=== PATIENT | male | born 1985 | race Caucasian/White ===

== ENCOUNTER → 2016-11-25 | Day surgery (SDC) | payer MEDICAID ==
[~2016-11-25] MED LIST: LIDOCAINE 1% INJ-PF (10 MG/ML) 30 ML SDV ONE
== END ==
LOC: RAD 12:40
PROVIDERS: ATTEND Radiology Radiation Oncology
PROC: BP08ZZZ Plain Radiography of Right Shoulder (ICD-10-PCS; principal; 2016-11-25)
DX: S43.431D Superior glenoid labrum lesion of right shoulder, subsequent encounter (principal); X58.XXXD Exposure to other specified factors, subsequent encounter
CPT/HCPCS: 73222; 73040; 77002; A9576; J3490

== ENCOUNTER 2017-02-22 15:25 | Emergency (ER) | payer MEDICAID ==
[2017-02-22 15:30] VITALS: BP 131/71
--- NOTE | 2017-02-22 15:53 | ER Document Report ---
HPI - HPI Patient complains to provider of: low back pain- chronic intermittent Onset: Other - 4-5 days, worse this am Onset/Duration: Gradual, Intermittent, Waxing and waning Pain Level: 4 Context: 31 yo male chronic intermittent low back pain for several years, has increased pain last 4-5 days, worse when lifting a sofa this morning. no saddle anesthesia , no fever or chills, no iv drug use. pain radiates into buttocks. Associated Symptoms: None Exacerbated by: Movement Relieved by: Denies Similar symptoms previously: Yes Recently seen / treated by doctor: No - ROS ROS below otherwise negative: Yes Systems Reviewed and Negative: Yes All other systems reviewed and negative - REPRODUCTIVE Reproductive: DENIES: : - DERM Skin Color: Normal Past Medical History - General Information source: Patient - Social History Smoking Status: Unknown if Ever Smoked Frequency of alcohol use: None Drug Abuse: None Lives with: Family Family History: Reviewed & Not Pertinent Patient has suicidal ideation: No Patient has homicidal ideation: No - Medical History Medical History: Negative Renal/ Medical History: Denies: Hx Peritoneal Dialysis Musculoskeltal Medical History: Reports Hx Musculoskeletal Trauma Past Surgical History: Reports: Hx Orthopedic Surgery - right shoulder, surgery for torn labrum him 2 years ago - Immunizations Immunizations up to date: Yes Hx Diphtheria, Pertussis, Tetanus Vaccination: No Vertical Provider Document - CONSTITUTIONAL Agree With Documented VS: Yes Exam Limitations: No Limitations General Appearance: No Apparent Distress - INFECTION CONTROL TRAVEL OUTSIDE OF THE [place] IN LAST 30 DAYS: No - HEENT HEENT: Atraumatic, Normocephalic - NECK Neck: Supple - RESPIRATORY Respiratory: Breath Sounds Normal, No Respiratory Distress O2 Sat by Pulse Oximetry: 99 - CARDIOVASCULAR Cardiovascular: Regular Rate, Regular Rhythm - BACK Back: Normal Inspection. negative: CVA Tenderness-Right, CVA Tenderness-Left Notes: left sacroiliac joint area tender, no swelling - MUSCULOSKELETAL/EXTREMETIES Musculoskeletal/Extremeties: MAEW, FROM, Tender - left sacroiliac and lumbar muscles on the left - NEURO Level of Consciousness: Awake, Alert, Appropriate Motor/Sensory: No Motor Deficit, No Sensory Deficit Deep Tendon Reflexes: 2+ - octavia ankle and patellar - DERM Integumentary: Warm, Dry Course - Vital Signs Vital signs: Temp Pulse Resp BP Pulse Ox 98.2 F 82 18 131/71 H 99 02/22/17 15:29 02/22/17 15:29 02/22/17 15:29 02/22/17 15:29 02/22/17 15:29 Discharge - Discharge Clinical Impression: Sacroiliitis Low back strain Qualifiers: Encounter type: initial encounter Qualified Code(s): S39.012A - Strain of muscle, fascia and tendon of lower back, initial encounter Sciatica Qualifiers: Laterality: right Qualified Code(s): M54.31 - Sciatica, right side Condition: Good Disposition: HOME, SELF-CARE Instructions: Low Back Pain ([facility]), Muscle Strain ([facility]), Toradol Injection ([facility]) , Warm Packs ([facility]), Acetaminophen, Chiropractor Additional Instructions: warm compress Use good body mechanics Return to the emergency room if worse Please complete the patient satisfaction survey if you get one, and return it.. If you do not receive a survey, then you can go to the [facility] website, [email or web address] and place your comments about your very good care. Thank you very much. It was a pleasure being your medical provider today. Prescriptions: Ibuprofen [Motrin 800 mg Tablet] 800 mg PO Q8HP PRN #30 tablet PRN Reason: Cyclobenzaprine HCl [Flexeril 10 Mg Tablet] 10 mg PO TIDP PRN #20 tablet PRN Reason: Forms: Return to Work Referrals: JONNY JOE MD [ACTIVE STAFF] - Follow up as needed
[2017-02-22] MEDS ORDERED: KETOROLAC TROMETHAMINE 60 MG/2 ML SDV IM ONE (16:01)
== END 2017-02-22 16:20 | disposition home or self-care (01) ==
LOC: ER 15:25
DX: S39.012A Strain of muscle, fascia and tendon of lower back, initial encounter (principal); M46.1 Sacroiliitis, not elsewhere classified; M54.5 Low back pain; G89.29 Other chronic pain; X58.XXXA Exposure to other specified factors, initial encounter
CPT/HCPCS: 99283; 96372; J1885

== ENCOUNTER 2017-04-15 21:39 | Emergency (ER) | payer MEDICAID ==
--- NOTE | 2017-04-15 23:54 | ER Document Report ---
ED Oral Problem - General Mode of Arrival: Ambulatory Information source: Patient TRAVEL OUTSIDE OF THE [place] IN LAST 30 DAYS: No - HPI Patient complains to provider of: Toothache Onset: Other - Refer to HPI notes Quality of pain: Throbbing Associated symptoms: Dental decay Worsened by: Cold Similar symptoms previously: Yes Recently seen / treated by doctor/dentist: No - General Chief Complaint: Toothache Stated Complaint: TOOTH PAIN Time Seen by Provider: 04/15/17 23:48 Notes: Patient is a 32 year old male presenting to the emergency department for dental pain. Patient states he has current dental cavities and has not seen a dentist recently. Patient has complains of dental pain for the past 2 weeks which increased today. Patient also has cold/hot sensitivity to PO. Patient denies fevers or any injury to his teeth. Patient states he has taken Motrin without relief. Patient has a history of chronic back pain and is with pain management; patient takes Ultram x4 per day. Patient has no known drug allergies. (YASMIN TSATON) - Related Data Allergies/Adverse Reactions: No Known Allergies Allergy (Verified 02/22/17 15:27) Past Medical History - General Information source: Patient - Social History Smoking Status: Unknown if Ever Smoked Family History: None Patient has suicidal ideation: No Patient has homicidal ideation: No Musculoskeltal Medical History: Reports Hx Musculoskeletal Trauma, Reports Other - chronic back pain Past Surgical History: Reports: Hx Orthopedic Surgery - right shoulder, surgery for torn labrum - Immunizations Immunizations up to date: Yes Hx Diphtheria, Pertussis, Tetanus Vaccination: No Review of Systems - Review of Systems Constitutional: No symptoms reported EENT: See HPI, Dental problem Cardiovascular: No symptoms reported Respiratory: No symptoms reported Gastrointestinal: No symptoms reported Genitourinary: No symptoms reported Male Genitourinary: No symptoms reported Musculoskeletal: No symptoms reported Skin: No symptoms reported Hematologic/Lymphatic: No symptoms reported Neurological/Psychological: No symptoms reported -: Yes All other systems reviewed and negative Physical Exam - Vital signs Interpretation: Normal - General General appearance: Appears well, Alert In distress: Mild - HEENT Head: Normocephalic, Atraumatic Eyes: Normal Pupils: PERRL Mouth/Lips: Normal Mucous membranes: Moist Teeth diagram: 1 - Left lower 2nd molar has a filling with some erythema and some mild tenderness to percussion. Left lower 1st molar, to the lateral aspect at the gumline is some tooth erosion and tenderness to percussion. Pharynx: Normal Neck: Normal. No: Lymphadenopathy - Respiratory Respiratory status: No respiratory distress - Cardiovascular Rhythm: Regular - Abdominal Inspection: Normal - Back Back: Normal - Extremities General upper extremity: Normal inspection, Normal ROM, Normal strength General lower extremity: Normal inspection, Normal ROM, Normal strength - Neurological Neuro grossly intact: Yes Cognition: Normal Orientation: AAOx4 Aric Coma Scale Eye Opening: Spontaneous Aric Coma Scale Verbal: Oriented [place] Coma Scale Motor: Obeys Commands Aric Coma Scale Total: 15 Speech: Normal - Psychological Associated symptoms: Normal affect, Normal mood - Skin Skin Temperature: Warm Skin Moisture: Dry - Vital signs Vitals: Temp Pulse Resp BP Pulse Ox 97.7 F 66 16 141/89 H 99 04/15/17 22:19 04/15/17 22:19 04/15/17 22:19 04/15/17 22:19 04/15/17 22:19 Discharge - Discharge Clinical Impression: Dental decay Additional Instructions: Toothache Your pain is due to dental decay. The tooth must be repaired in order for you to feel better. You will, therefore, be referred to a dentist. Severe swelling or drainage around a tooth usually means a deep dental abscess. This also requires evaluation and treatment by the dentist, but antibiotics may be prescribed while awaiting dental treatment. You should be rechecked immediately if you develop major swelling of the face, increasing pain, a lump in the jaw or gums, headache, or fever. TAKE THE MEDICATION PRESCRIBED. CONTINUE YOUR REGULAR PAIN MEDICATIONS. ADD MOTRIN OR ALEVE FOR A FEW DAYS. FOLLOW UP WITH A DENTIST. Prescriptions: Penicillin V Potassium [Penicillin Vk 500 mg Tablet] 500 mg PO QID #28 tablet Scribe Attestation: 04/16/17 00:01 I personally performed the services described in the documentation, reviewed and edited the documentation which was dictated to the scribe in my presence, and it accurately records my words and actions. (FRANCOISE BERKOWITZ) Scribe Documentation - Scribe Written by Rigoberto:: Rigoberto Bernabe, 04/16/17 00:15 acting as scribe for :: Tia
[2017-04-16] MEDS ORDERED: NAPROXEN 250 MG TABLET PO ONE (00:01)
[2017-04-16] MEDS ORDERED: PENICILLIN V POTASSIUM 500 MG TABLET PO ONE (00:01)
[2017-04-16 01:47] VITALS: BP 128/94
== END 2017-04-16 00:40 | disposition home or self-care (01) ==
LOC: ER 21:39
DX: K02.9 Dental caries, unspecified (principal); K08.89 Other specified disorders of teeth and supporting structures
CPT/HCPCS: 99282; J3490 ×2

== ENCOUNTER 2017-07-07 13:32 | Emergency (ER) | payer MEDICAID ==
[2017-07-07] MEDS ORDERED: FENTANYL CITRATE INJ/PF 100 MCG/2 ML AMPUL IV ONE (13:47)
[2017-07-07] MEDS ORDERED: DIPH/PERTUSS(ACELL)/TETANUS VAC/PF 0.5 ML SYR (>=10YO) IM ONE (13:47)
[2017-07-07] MEDS ORDERED: CEFAZOLIN 1 GM/D5W RTU 1 GM/50 ML RTUPB IV ONE (13:47)
--- NOTE | 2017-07-07 13:49 | ER Document Report ---
ED Medical Screen (RME) - General Chief Complaint: Fall Stated Complaint: FALL,HEAD AND FINGER INJURY Time Seen by Provider: 07/07/17 13:46 Mode of Arrival: Wheelchair Information source: Patient Notes: 32-year-old male fell off a 6 foot ladder with complaints of head injury right hand injury and right-sided pain I have greeted and performed a rapid initial assessment of this patient. A comprehensive ED assessment and evaluation of the patient, analysis of test results and completion of the medical decision making process will be conducted by additional ED providers. PHYSICAL EXAMINATION: GENERAL: Well-appearing, well-nourished and in no acute distress. HEAD: Laceration to scalp on the right occipital EYES: Pupils equal round extraocular movements intact, conjunctiva are normal. ENT: Nares patent NECK: Normal range of motion LUNGS: No respiratory distress Musculoskeletal: Deformity right hand NEUROLOGICAL: Normal speech, normal gait. PSYCH: Normal mood, normal affect. SKIN: Laceration TRAVEL OUTSIDE OF THE [place] IN LAST 30 DAYS: No - Related Data Allergies/Adverse Reactions: No Known Allergies Allergy (Verified 07/07/17 13:38) Past Medical History Renal/ Medical History: Denies: Hx Peritoneal Dialysis Musculoskeltal Medical History: Reports Hx Musculoskeletal Trauma Past Surgical History: Reports: Hx Orthopedic Surgery - right shoulder, surgery for torn labrum - Immunizations Immunizations up to date: Yes Hx Diphtheria, Pertussis, Tetanus Vaccination: No Physical Exam - Vital signs Vitals: Temp Pulse Resp BP Pulse Ox 97.7 F 87 16 139/95 H 97 07/07/17 13:35 07/07/17 13:35 07/07/17 13:35 07/07/17 13:35 07/07/17 13:35 Course - Vital Signs Vital signs: Temp Pulse Resp BP Pulse Ox 97.7 F 87 16 139/95 H 97 07/07/17 13:35 07/07/17 13:35 07/07/17 13:35 07/07/17 13:35 07/07/17 13:35
[2017-07-07 14:07] LABS: ABSOLUTE BASOPHILS # (AUTO) 0.1 10^3/uL (0.0-0.2); ABSOLUTE EOSINOPHILS # (AUTO) 0.4 10^3/uL (0.0-0.6); ABSOLUTE LYMPHOCYTES (AUTO) 1.7 10^3/uL (0.5-4.7); ABSOLUTE MONOCYTES (AUTO) 0.4 10^3/uL (0.1-1.4); ABSOLUTE NEUT (AUTO) 3.8 10^3/uL (1.7-8.2); BASOPHILS % (AUTO) 1.1 % (0-2); EOSINOPHILS % (AUTO) 6.1 % (0-6); HEMATOCRIT 42.9 % (37.9-51.0); HEMOGLOBIN 15.2 g/dL (13.5-17.0); HGB HCT DIFFERENCE 2.7; MEAN CORPUSCULAR HEMOGLOBIN 32.6 pg (27.0-33.4); MEAN CORPUSCULAR HGB CONC 35.4 g/dL (32.0-36.0); MEAN CORPUSCULAR VOLUME 92 fl (80-97); RED BLOOD COUNT 4.65 10^6/uL (4.35-5.55); RED CELL DISTRIBUTION WIDTH 14.7 % (11.5-14.0); SEGMENTED NEUTROPHILS % (AUTO) 59.8 % (42-78); WHITE BLOOD COUNT 6.3 10^3/uL (4.0-10.5)
--- NOTE | 2017-07-07 14:37 | ER Document Report ---
ED Fall - General Chief Complaint: Fall Stated Complaint: FALL,HEAD AND FINGER INJURY Time Seen by Provider: 07/07/17 13:46 Mode of Arrival: Wheelchair Information source: Patient Notes: The patient is a 32-year-old male who presents after he fell off a 6 foot ladder and he thinks that he had LOC. He is complaining of a headache, left middle finger pain and right chest and flank pain. He is unsure of his tetanus status. He denies numbness, tingling, difficulty walking, back pain, chest pain or blurry vision. TRAVEL OUTSIDE OF THE [place] IN LAST 30 DAYS: No - Related data Allergies/Adverse Reactions: No Known Allergies Allergy (Verified 07/07/17 13:38) Past Medical History - General Information source: Patient - Social History Smoking Status: Current Every Day Smoker Family History: None Renal/ Medical History: Denies: Hx Peritoneal Dialysis Musculoskeltal Medical History: Reports Hx Musculoskeletal Trauma Past Surgical History: Reports: Hx Orthopedic Surgery - right shoulder, surgery for torn labrum - Immunizations Immunizations up to date: Yes Hx Diphtheria, Pertussis, Tetanus Vaccination: No Review of Systems - Review of Systems Notes: REVIEW OF SYSTEMS: CONSTITUTIONAL: -fevers, -chills EENT: -eye pain, -difficulty swallowing, -nasal congestion CARDIOVASCULAR: +right chest pain, -syncope. RESPIRATORY: -cough, -SOB GASTROINTESTINAL: +right-sided abdominal pain, -nausea, -vomiting, -diarrhea GENITOURINARY: -dysuria, -hematuria MUSCULOSKELETAL: -back pain, +neck pain, +left middle finger pain SKIN: -rash or skin lesions. HEMATOLOGIC: -easy bruising or bleeding. LYMPHATIC: -swollen, enlarged glands. NEUROLOGICAL: -altered mental status, +loss of consciousness, +headache, - neurologic symptoms PSYCHIATRIC: -anxiety, -depression. ALL OTHER SYSTEMS REVIEWED AND NEGATIVE. Physical Exam - Vital signs Vitals: Temp Pulse Resp BP Pulse Ox 97.7 F 87 16 139/95 H 97 07/07/17 13:35 07/07/17 13:35 07/07/17 13:35 07/07/17 13:35 07/07/17 13:35 - Notes Notes: PHYSICAL EXAMINATION: GENERAL: Well-appearing, well-nourished and in no acute distress. HEAD: 1 cm laceration over posterior scalp, normocephalic. EYES: Pupils equal round and reactive to light, extraocular movements intact, sclera anicteric, conjunctiva are normal. ENT: nares patent, oropharynx clear without exudates. Moist mucous membranes. NECK: Normal range of motion, supple without lymphadenopathy, no midline tenderness LUNGS: Breath sounds clear to auscultation bilaterally and equal. No wheezes rales or rhonchi. HEART: Regular rate and rhythm without murmurs, tenderness over right lateral chest wall ABDOMEN: Soft, mild right flank tenderness, normoactive bowel sounds. No guarding, no rebound. No masses appreciated. EXTREMITIES: posterior dislocation of left 3rd PIP joint, brisk capillary refill , sensory intact, superficial abrasions of right hand NEUROLOGICAL: Cranial nerves grossly intact. Normal speech, normal gait. Normal sensory and motor exams. PSYCH: Normal mood, normal affect. Course - Re-evaluation Re-evalutation: Patient's left third finger dislocation reduced and splinted. His scalp laceration repaired with a staple and told to return in 1 week to have it removed or see his primary care physician. No other injuries on CT scan. Tetanus updated and we will send home with Keflex due to open wounds. Given return precautions and he understands. - Vital Signs Vital signs: Temp Pulse Resp BP Pulse Ox 97.7 F 77 16 139/95 H 99 07/07/17 13:36 07/07/17 13:36 07/07/17 13:35 07/07/17 13:36 07/07/17 13:36 - Laboratory Result Diagrams: 07/07/17 13:55 07/07/17 13:55 Laboratory results interpreted by me: 07/07/17 07/07/17 13:55 13:55 RDW 14.7 H Eosinophils % 6.1 H Sodium 135.3 L Chloride 96 L Alkaline Phosphatase 133 H - Diagnostic Test Radiology reviewed: Image reviewed, Reports reviewed Radiology results interpreted by me: Left hand x-ray: posterior dislocation of 3rd PIP joint CT Head/C-spine/Chest/A/P: NAD Procedures - Joint Reduction/Fracture Care Left 3rd digit Time completed: 15:04 Consent obtained: Yes Conscious sedation: No Pre-procedure NV exam: Yes Fracture: Closed Manipulation comment: Left 3rd finger posterior dislocation reduced using traction countertractio Post-procedure NV exam: Yes Post-reduction x-ray: Joint reduced Reduction attempts: 1 Complications: No - Laceration/Wound Repair Posterior Head Time completed: 15:05 Wound length (cm): 1 Wound's Depth, Shape: Linear Laceration pre-procedure: Sterile PPE donned Anesthetic type: 1% Lidocaine Volume Anesthetic (mLs): 2 Wound explored: Clean Irrigated w/ Saline (mLs): 500 Wound Repaired With: Darian Number of Sutures: 1 Layer Closure?: No Post-procedure NV exam normal: Yes Complications: No Discharge - Discharge Clinical Impression: Abrasion Dislocation, finger closed Qualifiers: Encounter type: initial encounter Qualified Code(s): S63.259A - Unspecified dislocation of unspecified finger, initial encounter Scalp laceration Qualifiers: Encounter type: initial encounter Qualified Code(s): S01.01XA - Laceration without foreign body of scalp, initial encounter Condition: Stable Disposition: HOME, SELF-CARE Additional Instructions: LACERATION CARE: Your laceration has been stapled to keep the skin edges aligned during healing. The time of suture removal depends on the nature and location of your cut. Please follow the care instructions the doctor has outlined for you and return for further care, according to the schedule you've been given. Keep the wound and dressing clean. Unless you were told otherwise, you may shower daily, blotting the wound dry with a clean, unused towel. At other times, If the dressing gets wet or blood soaked, remove it and blot the wound dry, then reapply a new dressing. Unless you were instructed otherwise, dressings should be changed at least daily. If any signs of infection occur (swelling, redness, drainage, increasing tenderness, red streaks, tender lumps in the armpit or groin above the laceration, or fever), see the doctor immediately. SOAP CLEANSING: Gently wash the wound daily using a mild soap (like Ivory, Phisoderm, Neutrogena). Use warm water, rubbing gently until all debris, ooze, and crusting have been washed from the wound. Allow to dry briefly (about 10 minutes) after cleaning. Repeat this cleansing at least three times a day for the first two days and then once or twice a day. ANTIBIOTIC OINTMENT PROTECTION: Your wounds are such that dressing them is not practical or optional. After cleansing, you should apply a thin coating of antibiotic ointment ( Bacitracin, not Neosporin) to the wounds at least three times daily. This lessens infection risk, and may decrease the amount of scarring. Use a q-tip or dull butter knife, not your finger, to apply this ointment. Any debris or ooze which builds up in the ointment should be gently rubbed off with a sterile gauze pad. Harder crusting may need to be gently scrubbed off with a clean wash cloth with soap and warm water, perhaps applying a warm, wet wash cloth to the wound for ten minutes first. Development of redness, severe itching, or blistering may mean allergy to the ointment. See the doctor. TETANUS IMMUNIZATION GIVEN: You have been given an immunization against tetanus. Please record this in your records. In general, a booster is needed only once every 10 years. The tetanus shot protects against tetanus or "lockjaw," which is a complication of certain wound infections (the tetanus shot cannot protect against the actual infection). The immunization site may become warm and red due to local reaction. If this occurs, apply warm compresses and take aspirin or ibuprofen to reduce inflammation and discomfort. Return for evaluation if the reaction becomes severe. PROPHYLACTIC ANTIBIOTIC: The antibiotics which have been prescribed are designed to decrease the risk of infection. Only certain types of wounds benefit from this -- the typical cut, scrape, or burn DOES NOT require antibiotics. Of course, infection can still occur despite the use of prophylactic antibiotics. Your wound will heal with less chance of an infectious complication if you take the medication as directed. The most important dose is the FIRST dose, so don't delay filling the prescription! ORAL NARCOTIC MEDICATION: You have been given a prescription for pain control. This medication is a narcotic. It's best taken with food, as nausea can result if taken on an empty stomach. Don't operate machinery or drive within six hours of taking this medication. Do not combine this medicine with alcohol, or with any medication which can cause sedation (such as cold tablets or sleeping pills) unless you get permission from the physician. Narcotics tend to cause constipation. If possible, drink plenty of fluids and eat a diet high in fiber and fruits. FOLLOW-UP CARE: Your darian should be removed in 7 days. To facilitate a timely removal of your sutures, you may return to the Emergency Department at [facility]. You do not need to call for an appointment, but the best time to come in for suture removal is early in the morning. If you have been referred to another physician for follow-up care, call that physicians office for an appointment as you were instructed. If you experience a significant change in your laceration, or if you are concerned there may be an infection (swelling, redness, drainage, increasing tenderness, red streaks, tender lumps in the armpit or groin above the laceration, or fever) , return to the Emergency Department immediately re-evaluation. Dislocation You have suffered a dislocation of your joint. It has been reduced (put back in place). It will take time for the tissues around the joint to heal. The joint will be immobilized at first. If possible, elevate the injured area and apply ice packs. After healing is underway, the joint will require [id number] and strengthening exercises. The follow-up care is important in avoiding residual problems following your dislocation. If you note any numbness, muscle weakness, or severe swelling in the affected area, call the doctor or return for re-evaluation at once. Prescriptions: Cephalexin Monohydrate [Keflex 500 mg Capsule] 500 mg PO Q12H 7 Days capsule Hydrocodone/Acetaminophen [Lodi 5-325 mg Tablet] 1 tab PO Q6H PRN #12 tablet PRN Reason: Referrals: SUNNY WYNN MD [Primary Care Provider] - Follow up as needed
[2017-07-07 14:39] LABS: ALANINE AMINOTRANSFERASE 43 U/L (21-72); ALBUMIN 4.9 g/dL (3.5-5.0); ALKALINE PHOSPHATASE 133 U/L (38-126); ANION GAP 11 (5-19); ASPARTATE AMINO TRANSFERASE 49 U/L (17-59); BILIRUBIN,DIRECT 0.3 mg/dL (0.0-0.4); BILIRUBIN,TOTAL 0.6 mg/dL (0.2-1.3); BLOOD UREA NITROGEN 7 mg/dL (7-20); CALCIUM 9.4 mg/dL (8.4-10.2); CARBON DIOXIDE 28 mmol/L (22-30); CHLORIDE 96 mmol/L (98-107); CREATININE RESULT 0.99 mg/dL (0.52-1.25); GLUCOSE 108 mg/dL (75-110); POTASSIUM 3.9 mmol/L (3.6-5.0); SODIUM 135.3 mmol/L (137-145); TOTAL PROTEIN 7.5 g/dL (6.3-8.2)
[2017-07-07] MEDS ORDERED: LIDOCAINE 1% INJ-PF (10 MG/ML) 30 ML SDV ONE (14:43)
--- NOTE | 2017-07-07 14:47 | RADIOLOGY REPORT (SQ) ---
EXAM DESCRIPTION: CT HEAD WITHOUT COMPLETED DATE/TIME: 07/07/2017 2:26 pm REASON FOR STUDY: fall COMPARISON: None. TECHNIQUE: Axial images acquired through the brain without intravenous contrast. Images reviewed wi th bone, brain and subdural windows. Images stored on PACS. All CT scanners at this facility use dose modulation, iterative reconstruction, and/or weight based d osing when appropriate to reduce radiation dose to as low as reasonably achievable (ALARA). [facility]: Dose Right [facility]: CareDose [facility]: Dose Right [facility]: Teradose 4D [facility]: Citilog RADIATION DOSE: Up-to-date CT equipment and radiation dose reduction techniques were employed. CTDIv ol: 64.6 mGy. DLP: 1292 mGy-cm. mGy. LIMITATIONS: None. FINDINGS: VENTRICLES: Normal size and contour. CEREBRUM: No masses. No hemorrhage. No midline shift. Normal archuleta/white matter differentiation. N o evidence for acute infarction. CEREBELLUM: No masses. No hemorrhage. No alteration of density. No evidence for acute infarction. EXTRAAXIAL SPACES: No fluid collections. No masses. ORBITS AND GLOBE: No intra- or extraconal masses. Normal contour of globe without masses. CALVARIUM: No fracture. PARANASAL SINUSES: Fluid in the maxillary and ethmoid sinuses. SOFT TISSUES: No mass or hematoma. OTHER: No other significant finding. IMPRESSION: NORMAL BRAIN CT WITHOUT CONTRAST. TECHNICAL DOCUMENTATION: JOB ID: [id number] Quality ID # [id number]: Final reports with documentation of one or more dose reduction techniques (e.g., Au tomated exposure control, adjustment of the mA and/or kV according to patient size, use of iterative reconstruction technique) 2010 [employer]- All Rights Reserved
--- NOTE | 2017-07-07 14:47 | RADIOLOGY REPORT (SQ) ---
EXAM DESCRIPTION: CT CERVICAL SPINE WITHOUT COMPLETED DATE/TIME: 07/07/2017 2:26 pm REASON FOR STUDY: fall COMPARISON: None. TECHNIQUE: Axial images acquired through the cervical spine without intravenous contrast. Images re viewed with lung, soft tissue and bone windows. Reconstructed coronal and sagittal MPR images review ed. Images stored on PACS. All CT scanners at this facility use dose modulation, iterative reconstruction, and/or weight based d osing when appropriate to reduce radiation dose to as low as reasonably achievable (ALARA). [facility]: Dose Right [facility]: CareDose [facility]: Dose Right [facility]: Teradose 4D [facility]: Smart [employer] RADIATION DOSE: Up-to-date CT equipment and radiation dose reduction techniques were employed. CTDIv ol: 15.1 mGy. DLP: 324 mGy-cm. mGy. LIMITATIONS: None. FINDINGS: ALIGNMENT: Anatomic. MINERALIZATION: Normal. VERTEBRAL BODIES: No fractures or dislocation. DISCS: Mild degenerative disc disease. FACETS, LATERAL MASSES, POSTERIOR ELEMENTS: No fractures. No dislocation. No acute findings. HARDWARE: None in the spine. VISUALIZED RIBS: No fractures. LUNG APICES AND SOFT TISSUES: No significant or acute findings. OTHER: No other significant finding. IMPRESSION: 1. No evidence of acute injury involving the cervical spine. 2. Mild degenerative disc disease. TECHNICAL DOCUMENTATION: JOB ID: [id number] Quality ID # [id number]: Final reports with documentation of one or more dose reduction techniques (e.g., Au tomated exposure control, adjustment of the mA and/or kV according to patient size, use of iterative reconstruction technique) 2010 [employer]- All Rights Reserved
--- NOTE | 2017-07-07 14:49 | RADIOLOGY REPORT (SQ) ---
EXAM DESCRIPTION: HAND RIGHT 3 VIEWS COMPLETED DATE/TIME: 07/07/2017 2:38 pm REASON FOR STUDY: fall COMPARISON: None. EXAM PARAMETERS: NUMBER OF VIEWS: Three views. TECHNIQUE: AP, lateral and oblique radiographic images acquired of the right hand. LIMITATIONS: None. FINDINGS: MINERALIZATION: Normal. BONES: Posterior dislocation 3rd proximal interphalangeal joint. JOINTS: See above. SOFT TISSUES: No soft tissue swelling. No foreign body. OTHER: No other significant finding. IMPRESSION: Posterior dislocation 3rd proximal interphalangeal joint. TECHNICAL DOCUMENTATION: JOB ID: [id number] [employer]- All Rights Reserved
--- NOTE | 2017-07-07 14:58 | RADIOLOGY REPORT (SQ) ---
EXAM DESCRIPTION: CT ABD/PELVIS WITH IV ONLY; CT CHEST WITH COMPLETED DATE/TIME: 07/07/2017 2:26 pm REASON FOR STUDY: fall COMPARISON: None. CONTRAST TYPE AND DOSE: contrast/concentration: Isovue 370.00 mg/ml; Total Contrast Delivered: 84.0 ml; Total Saline Delivered: 55.0 ml RENAL FUNCTION: None required. The patient is less than 50 years old. TECHNIQUE: CT scan of the chest performed using helical scanning technique with dynamic intravenous contrast injection. Images reviewed with lung, soft tissue and bone windows. Reconstructed coronal a nd sagittal MPR images reviewed. All images stored on PACS. CT scan of the abdomen and pelvis performed with intravenous and without oral contrastusing helical s ruddy technique with dynamic intravenous contrast injection. Images reviewed with lung, soft tissu e and bone windows. Reconstructed coronal and sagittal MPR images reviewed. Delayed images for eval uation of the urinary system also acquired and evaluated. All images stored on PACS. All CT scanners at this facility use dose modulation, iterative reconstruction, and/or weight based d osing when appropriate to reduce radiation dose to as low as reasonably achievable (ALARA). [facility]: Dose Right [facility]: CareDose [facility]: Dose Right [facility]: Teradose 4D [facility]: [employer] RADIATION DOSE: Up-to-date CT equipment and radiation dose reduction techniques were employed. CTDIv ol: 6.2 - 7.9 mGy. DLP: 859 mGy-cm. . LIMITATIONS: None. FINDINGS: CHEST: LUNGS AND PLEURA: No opacities, nodules, masses. No pneumothorax. No effusions. HILAR AND MEDIASTINAL STRUCTURES: No identified masses or abnormal nodes. Small amount residual thym us tissue. HEART AND VASCULAR STRUCTURES: No aneurysm or dissection. No central pulmonary emboli. No pericardi al effusion. HARDWARE: None. THYROID AND OTHER SOFT TISSUES: No masses. No adenopathy. BONES: No significant finding. OTHER: No other significant finding. ABDOMEN AND PELVIS: LIVER: Normal size. No masses. No dilated ducts. SPLEEN: Normal size. No focal lesions. PANCREAS: No masses. No significant calcifications. No adjacent inflammation or peripancreatic fluid collections. Pancreatic duct not dilated. GALLBLADDER: No identified stones by CT criteria. No inflammatory changes to suggest cholecystitis. ADRENAL GLANDS: No significant masses or asymmetry. RIGHT KIDNEY AND URETER: No solid masses. No significant calcification. No hydronephrosis or hydroure ter. LEFT KIDNEY AND URETER: No solid masses. No significant calcification. No hydronephrosis or hydrouret er. AORTA AND VESSELS: No aneurysm. No dissection. Renal arteries, SMA, celiac without stenosis. RETROPERITONEUM: No retroperitoneal adenopathy, hemorrhage or masses. BOWEL AND PERITONEAL CAVITY: No masses or inflammatory changes. No free fluid or peritoneal masses. APPENDIX: Normal. ABDOMINAL WALL: No masses. No hernias. BONES: No evidence of fracture. Moderate degenerative disc disease at L4-5 and L5-S1. OTHER: No other significant finding. IMPRESSION: 1. NORMAL CT OF THE CHEST WITH IV CONTRAST. 2. No evidence of acute injury in the abdomen or pelvis. Moderate degenerative disc disease at L4-5 and L5-S1. TECHNICAL DOCUMENTATION: JOB ID: [id number] Quality ID # [id number]: Final reports with documentation of one or more dose reduction techniques (e.g., Au tomated exposure control, adjustment of the mA and/or kV according to patient size, use of iterative reconstruction technique) 2010 [employer]- All Rights Reserved
[2017-07-07 15:09] LABS: APPEARANCE,URINE CLEAR; BILIRUBIN,URINE NEGATIVE (NEGATIVE); GLUCOSE, URINE NEGATIVE (NEGATIVE); KETONES,URINE NEGATIVE (NEGATIVE); LEUKOCYTE ESTERASE,URINE NEGATIVE (NEGATIVE); NITRITE,URINE NEGATIVE (NEGATIVE); PROTEIN,URINE NEGATIVE (NEGATIVE); URINE SPECIFIC GRAVITY 1.012; UROBILINOGEN,URINE NEGATIVE mg/dL (<2.0)
--- NOTE | 2017-07-07 15:28 | RADIOLOGY REPORT (SQ) ---
EXAM DESCRIPTION: FINGER RIGHT COMPLETED DATE/TIME: 07/07/2017 3:07 pm REASON FOR STUDY: post-reduction COMPARISON: None. NUMBER OF VIEWS: Three views. TECHNIQUE: AP, lateral, and oblique images acquired of the right third finger. LIMITATIONS: None. FINDINGS: MINERALIZATION: Normal. BONES: Interval reduction of previous noted dislocated 3rd PIP joint. Bones are now in anatomic alig nment. No associated fracture. SOFT TISSUES: Mild soft tissue swelling involving the 3rd finger. OTHER: No other significant finding. IMPRESSION: Interval reduction of previous noted dislocated 3rd PIP joint. No associated fracture. COMMENT: SITE OF TRAUMA/COMPLAINT MARKED/STAMP COMPLETED: NOT APPLICABLE. TECHNICAL DOCUMENTATION: JOB ID: [id number] [employer]- All Rights Reserved
[2017-07-07 16:07] VITALS: BP 135/90
== END 2017-07-07 16:06 | disposition home or self-care (01) ==
LOC: ER 13:32
PROC: 0RSVXZZ Reposition Left Metacarpophalangeal Joint, External Approach (ICD-10-PCS; principal; 2017-07-07)
PROC: 0HQ0XZZ Repair Scalp Skin, External Approach (ICD-10-PCS; 2017-07-07)
DX: S63.259A Unspecified dislocation of unspecified finger, initial encounter (principal); S01.01XA Laceration without foreign body of scalp, initial encounter; W11.XXXA Fall on and from ladder, initial encounter; F17.200 Nicotine dependence, unspecified, uncomplicated
CPT/HCPCS: 26700; 12001; 99284; 90471; 96374; 36415; 85025; 80053; 81001; 73140; 73130; 70450; 71260; 72125; 74177; 90715; L0120; J0690; J3010

== ENCOUNTER 2018-01-22 13:03 | Emergency (ER) | payer MEDICAID ==
--- NOTE | 2018-01-22 13:45 | ER Document Report ---
ED Medical Screen (RME) - General Chief Complaint: Breathing Difficulty Stated Complaint: UPPER BACK PAINS Time Seen by Provider: 01/22/18 13:37 Mode of Arrival: Ambulatory Information source: Patient Notes: This is a 32-year-old man that presents to the emergency room with acute right chest pain. Patient states he was raking and felt a pop in the back by his scapula on the right side which radiated to the front. Social: 1 pack per day smoker Allergies: None Medications: Synthroid, ibuprofen Surgeries: Right shoulder surgery TRAVEL OUTSIDE OF THE [place] IN LAST 30 DAYS: No - HPI Onset: Just prior to arrival Onset/Duration: Sudden Quality of pain: Sharp, Stabbing Severity: Moderate Pain Level: 3 Associated Symptoms: Chest pain. denies: Shortness of breath Exacerbated by: Movement, Other - Exacerbated by range of motion of the right shoulder Relieved by: Remaining still Similar symptoms previously: Yes Recently seen / treated by doctor: No - Related Data Smoking: Cigarettes Frequency of alcohol use: None Drug Abuse: None Allergies/Adverse Reactions: No Known Allergies Allergy (Verified 01/22/18 13:06) Past Medical History - General Information source: Patient - Social History Cigarette use (# per day): Yes - 1/2 pack a day Chew tobacco use (# tins/day): No Frequency of alcohol use: Occasional Drug Abuse: None Lives with: Spouse/Significant other Family history: None - Past Medical History Cardiac Medical History: Reports: None Pulmonary Medical History: Reports: None Neurological Medical History: Reports: None Endocrine Medical History: Reports: None Renal/ Medical History: Denies: Hx Peritoneal Dialysis Malignancy Medical History: Reports None GI Medical History: Reports: None Musculoskeltal Medical History: Reports Hx Musculoskeletal Trauma Past Surgical History: Reports: Hx Orthopedic Surgery - right shoulder, surgery for torn labrum - Immunizations Immunizations up to date: Yes Hx Diphtheria, Pertussis, Tetanus Vaccination: No Review of Systems - Review of Systems Constitutional: denies: Chills, Fever EENT: No symptoms reported Cardiovascular: See HPI. denies: Palpitations, Heart racing, Orthopnea, Dyspnea , Syncope Respiratory: See HPI Gastrointestinal: No symptoms reported Genitourinary: No symptoms reported Male Genitourinary: No symptoms reported Musculoskeletal: See HPI Skin: No symptoms reported Hematologic/Lymphatic: No symptoms reported Neurological/Psychological: No symptoms reported Physical Exam - Vital signs Vitals: Temp Pulse Resp BP Pulse Ox 99.0 F 84 16 131/87 H 100 01/22/18 13:14 01/22/18 13:14 01/22/18 13:14 01/22/18 13:14 01/22/18 13:14 Notes: Physical exam: GENERAL: 32-year-old man, alert and oriented 3, no acute distress HEAD: Atraumatic, normocephalic. EYES: Pupils equal round and reactive to light, extraocular movements intact, sclera anicteric, conjunctiva are normal. ENT: TMs normal, nares patent, oropharynx clear without exudates. Moist mucous membranes. NECK: Normal range of motion, supple without obvious mass or JVD. LUNGS: Breath sounds clear to auscultation bilaterally and equal. No wheezes rales or rhonchi. HEART: Regular rate and rhythm without murmurs, rubs or gallops. ABDOMEN: Soft, normoactive bowel sounds. No tenderness to palpation. No guarding, no rebound. No masses appreciated. Back: Patient has tender to palpation underneath the scapula of the back wall on the right. There is no crepitus or skin changes. EXTREMITIES: Normal range of motion, no pitting or edema. No clubbing or cyanosis. Patient has normal pulses to the right upper extremity with good capillary refill and no evidence of cyanosis. He has significant pain to the right chest wall and right back when he lifts his right arm and does range of motion about the shoulder. He does have full range of motion at the shoulder. NEUROLOGICAL: Cranial nerves II through XII grossly intact. Normal speech, moving all extremities. PSYCH: Normal mood, normal affect. SKIN: Warm, Dry, normal turgor, no rashes or lesions noted. Course - Re-evaluation Re-evalutation: 01/22/18 15:26 Note: Patient is both PERC negative and Well's negAtive: The suspicion for pulmonary embolism is quite low. His oxygen saturation is 100% on room air. His symptoms are not consistent with PE and appear more musculoskeletal in nature. Chest x-ray shows fully inflated lungs without evidence of pneumothorax. Patient does have tenderness over the scapula to palpation and his pains is significantly worsened with range of motion of the right shoulder. Joint itself shows no erythema, no crepitus, no swelling. 01/22/18 19:16 - Vital Signs Vital signs: Temp Pulse Resp BP Pulse Ox 98.0 F 69 19 118/74 100 01/22/18 15:34 01/22/18 15:34 01/22/18 15:34 01/22/18 15:34 01/22/18 15:34 - Diagnostic Test Radiology reviewed: Image reviewed, Reports reviewed - Chest x-ray shows no infiltrates or effusions - EKG Interpretation by Me Rate: Normal Rhythm: NSR - EKG shows normal sinus rhythm with a ventricular rate of 60, some early re-pole, no T-wave inversions, no ST depressions Doctor's Discharge - Discharge Clinical Impression: Musculoskeletal pain Condition: Stable Disposition: HOME, SELF-CARE Additional Instructions: Recommendations: As we discussed, your chest x-ray looks good right now. There is no evidence of lung collapse or infiltrate. However, if the pain gets worse or if he starts getting short of breath or you think you are getting worse, it is important that you come back to the ER for repeat evaluation of your lungs. Continue with the ibuprofen. Take the Robaxin for muscle relaxation. This generally is nonsedating and most people. I would take it at home before going to work. Take Percocet as needed for pain not relieved with the ibuprofen. Follow-up with your primary care doctor in the next day for repeat evaluation: Bring a copy of the x-ray results from today. The pain medicine you're taking prescribed as a narcotic. There are several important things you should know about this medicine: 1. This medicine contains Tylenol: It is important that you do not take Tylenol (or acetaminophen) while on this medicine. Tylenol is metabolized by the liver and taking too much Tylenol (acetaminophen) can lay to liver damage and even liver failure. 2. Taking narcotics for too long can lead to physical and mental dependence. Take this medicine only if really needed and in the lowest quantity to achieve pain relief. 3. Do not drink alcohol while on this medicine. Alcohol interacts with narcotics and the combination can be dangerous. 4. Do not drive or operate machinery while on this medicine. 5. Narcotics do cause constipation, so drink plenty of fluids and daily stool softeners. Prescriptions: Methocarbamol [Robaxin 500 mg Tablet] 500 mg PO BID #14 tablet Oxycodone HCl/Acetaminophen [Percocet 5-325 mg Tablet] 1 - 2 tab PO ASDIR PRN # 25 tablet PRN Reason: Referrals: SUNNY WILLIAMSON MD [Primary Care Provider] - Follow up as needed
[2018-01-22] MEDS ORDERED: IPRATROPIUM/ALBUTEROL 0.5-2.5 MG/3 ML AMPUL NEB ONE (13:51)
[2018-01-22] MEDS ORDERED: KETOROLAC TROMETHAMINE 60 MG/2 ML SDV IM ONE (13:51)
--- NOTE | 2018-01-22 13:59 | RADIOLOGY REPORT (SQ) ---
EXAM DESCRIPTION: CHEST PA/LAT COMPLETED DATE/TIME: 01/22/2018 1:50 pm REASON FOR STUDY: right chest pain COMPARISON: 11/11/2015 EXAM PARAMETERS: NUMBER OF VIEWS: two views TECHNIQUE: Digital Frontal and Lateral radiographic views of the chest acquired. RADIATION DOSE: NA LIMITATIONS: none FINDINGS: LUNGS AND PLEURA: No opacities, masses or pneumothorax. No pleural effusion. MEDIASTINUM AND HILAR STRUCTURES: No masses or contour abnormalities. HEART AND VASCULAR STRUCTURES: Heart normal size. No evidence for failure. BONES: No acute findings. HARDWARE: None in the chest. OTHER: No other significant finding. IMPRESSION: NO SIGNIFICANT RADIOGRAPHIC FINDING IN THE CHEST. TECHNICAL DOCUMENTATION: JOB ID: [id number] [employer]- All Rights Reserved Reading location - IP/workstation name: [email or web address]
[2018-01-22 15:35] VITALS: BP 118/74
--- NOTE | 2018-01-22 21:46 | EKG REPORT ---
SEVERITY:- NORMAL ECG - SINUS RHYTHM : Confirmed by: Martha Broderick 22-Jan-2018 21:46:11
== END 2018-01-22 15:43 | disposition home or self-care (01) ==
LOC: ER 13:03
DX: M79.1 Myalgia (principal); R07.9 Chest pain, unspecified; F17.210 Nicotine dependence, cigarettes, uncomplicated
CPT/HCPCS: 93005; 94640; 99285; 96372; 71046; 93010; J1885; J7620

== ENCOUNTER 2018-04-26 19:38 | Emergency (ER) | payer MEDICAID ==
[2018-04-26 19:52] VITALS: BP 141/89
[2018-04-26] MEDS ORDERED: ACETAMINOPHEN 325 MG TABLET PO ONE (20:24)
[2018-04-26] MEDS ORDERED: LIDOCAINE 1% INJ-PF (10 MG/ML) 30 ML SDV INJ ONE (20:24)
[2018-04-26] MEDS ORDERED: IBUPROFEN 800 MG TABLET PO ONE (20:24)
[2018-04-26] MEDS ORDERED: CEFTRIAXONE INJ 500 MG VIAL IM ONE (20:24)
--- NOTE | 2018-04-26 20:25 | ER Document Report ---
HPI - HPI Pain Level: 4 Context: Patient is a 33-year-old male who presents emergency department the chief complaint of left thumb puncture wound. Patient states that he accidentally punctured his fat pad of his left thumb with a nail. States his tetanus is up- to-date. He has some pain and swelling of that part of his finger. Did not take anything prior to arrival. Denies any known allergies. Otherwise healthy male - REPRODUCTIVE Reproductive: DENIES: : - MUSCULOSKELETAL Musculoskeletal: REPORTS: Extremity pain - L thumb Past Medical History - Social History Smoking Status: Unknown if Ever Smoked Family History: None Patient has suicidal ideation: No Patient has homicidal ideation: No Renal/ Medical History: Denies: Hx Peritoneal Dialysis Musculoskeltal Medical History: Reports Hx Musculoskeletal Trauma Past Surgical History: Reports: Hx Orthopedic Surgery - right shoulder, surgery for torn labrum - Immunizations Immunizations up to date: Yes Hx Diphtheria, Pertussis, Tetanus Vaccination: No Vertical Provider Document - CONSTITUTIONAL Agree With Documented VS: Yes Notes: PHYSICAL EXAM GENERAL: Alert, interacts well. HEAD: Normocephalic, atraumatic. EXTREMITIES: Some limitation due to swelling of the left thumb but otherwise no evidence of paronychia, felon with a small puncture wound noted without active bleeding. Patient tenderness to palpation of the fat pad. Capillary refill less than 2 seconds in bilateral extremity digits. No cyanosis. NEUROLOGICAL: Alert and oriented x4. Normal speech. PSYCH: Normal affect, normal mood. SKIN: Warm, dry, normal turgor. - INFECTION CONTROL TRAVEL OUTSIDE OF THE [place] IN LAST 30 DAYS: No Course - Re-evaluation Re-evalutation: 04/26/18 21:18 Patient is a 33-year-old male who presents with a puncture and with an up-to- date tetanus. Patient given a dose of antibiotics and discharged home on Keflex as strict return precautions. At this time do not see any evidence of underlying foreign body or fracture noted on x-ray. At this time patient is not showing signs or symptoms concerning for osteomyelitis or septic joint. Patient agreeable with return precautions stable for discharge home - Vital Signs Vital signs: Temp Pulse Resp BP Pulse Ox 98.0 F 73 16 141/89 H 97 04/26/18 19:50 04/26/18 19:50 04/26/18 19:50 04/26/18 19:50 04/26/18 19:50 - Diagnostic Test Radiology reviewed: Image reviewed, Reports reviewed Discharge - Discharge Clinical Impression: Puncture wound Condition: Good Disposition: HOME, SELF-CARE Instructions: Puncture Wound ([facility]) Prescriptions: Cephalexin Monohydrate [Keflex 500 mg Capsule] 500 mg PO Q6H 5 Days capsule Forms: Elevated Blood Pressure Referrals: SUNNY WILLIAMSON MD [Primary Care Provider] - Follow up in 1 week
--- NOTE | 2018-04-26 20:39 | RADIOLOGY REPORT (SQ) ---
EXAM DESCRIPTION: FINGER LEFT COMPLETED DATE/TIME: 04/26/2018 8:08 pm REASON FOR STUDY: Thumb pain after injury COMPARISON: None. NUMBER OF VIEWS: Three views. TECHNIQUE: AP, lateral, and oblique images acquired of the left thumb. LIMITATIONS: None. FINDINGS: MINERALIZATION: Normal. BONES: No acute fracture or dislocation. No worrisome bone lesions. SOFT TISSUES: No soft tissue swelling. No foreign body. OTHER: No other significant finding. IMPRESSION: NO RADIOGRAPHIC EVIDENCE OF ACUTE INJURY. COMMENT: SITE OF TRAUMA/COMPLAINT MARKED/STAMP COMPLETED: Yes TECHNICAL DOCUMENTATION: JOB ID: [id number] [employer]- All Rights Reserved Reading location - IP/workstation name: [email or web address]
== END 2018-04-26 21:35 | disposition home or self-care (01) ==
LOC: ER 19:38
DX: S61.032A Puncture wound without foreign body of left thumb without damage to nail, initial encounter (principal); W29.4XXA Contact with nail gun, initial encounter
CPT/HCPCS: 99283; 96372; 73140; J3490 ×3; J0696

== ENCOUNTER 2018-05-16 18:17 | Emergency (ER) | payer MEDICAID ==
[2018-05-16] MEDS ORDERED: CIPROFLOXACIN HCL/DEXAMETH OTIC DROP 7.5 ML AS ONE (20:27)
[2018-05-16] MEDS ORDERED: GUAIFENESIN 600 MG TABLET.SA PO ONE (20:27)
[2018-05-16] MEDS ORDERED: PSEUDOEPHEDRINE HCL 30 MG TABLET PO ONE (20:27)
--- NOTE | 2018-05-16 20:33 | ER Document Report ---
ED ENT - General Chief Complaint: Ear Pain Stated Complaint: EAR PAIN Time Seen by Provider: 05/16/18 19:58 Mode of Arrival: Ambulatory Information source: Patient Notes: 33-year-old male presented ED for complaint of left ear pain since . He states he has had some blood in the ear since yesterday. He states he has had a cough and cold symptoms for a couple weeks. Patient is alert and oriented respirations regular and unlabored speaking in even sentences with a even steady gait. Patient states his was cleaning his ear out with some peroxide this weekend. He states no one has put any objects into his ear to injure his ear. TRAVEL OUTSIDE OF THE [place] IN LAST 30 DAYS: No - HPI Patient complains to provider of: Ear problem, Nose problem Onset: Last week Onset/Duration: Gradual Quality of pain: Sharp, Other - Ryan Severity: Moderate Pain Level: 4 Context: Recent Illness Location of pain: Ears Associated symptoms: Ear pain, Runny nose, Sinus pain, Sinus drainage Similar symptoms previously: Yes Recently seen / treated by doctor: No - Related Data Allergies/Adverse Reactions: No Known Allergies Allergy (Verified 05/16/18 19:36) Past Medical History - General Information source: Patient - Social History Smoking Status: Current Every Day Smoker Cigarette use (# per day): Yes - Pack per day Chew tobacco use (# tins/day): No Smoking Education Provided: Yes - 4 minutes Frequency of alcohol use: Occasional Drug Abuse: None 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 Lives with: Family Family History: None Patient has suicidal ideation: No Patient has homicidal ideation: No - Past Medical History Cardiac Medical History: Reports: Other - Heart palpitations Pulmonary Medical History: Reports: None EENT Medical History: Reports: None Neurological Medical History: Reports: None Endocrine Medical History: Reports: None, Hx Hypothyroidism Renal/ Medical History: Reports: None Malignancy Medical History: Reports None GI Medical History: Reports: None Musculoskeltal Medical History: Reports Hx Musculoskeletal Deformity, Reports Hx Musculoskeletal Trauma - Torn right labrum, Reports Other - Tendinitis and bursitis Skin Medical History: Reports None Psychiatric Medical History: Reports: None Traumatic Medical History: Reports: None Infectious Medical History: Reports: None Past Surgical History: Reports: Hx Orthopedic Surgery - right shoulder, surgery for torn labrum, left hand lump removed - Immunizations Immunizations up to date: Yes Hx Diphtheria, Pertussis, Tetanus Vaccination: No Review of Systems - Review of Systems Constitutional: No symptoms reported EENT: Ear pain, Ear discharge, Nose congestion, Nose discharge, Sinus pressure, Sinus discharge Cardiovascular: No symptoms reported Respiratory: No symptoms reported Gastrointestinal: No symptoms reported Genitourinary: No symptoms reported Male Genitourinary: No symptoms reported Musculoskeletal: No symptoms reported Skin: No symptoms reported Hematologic/Lymphatic: No symptoms reported Neurological/Psychological: No symptoms reported -: Yes All other systems reviewed and negative Physical Exam - Vital signs Vitals: Temp Pulse Resp BP Pulse Ox 98.7 F 84 16 119/81 99 05/16/18 18:42 05/16/18 18:42 05/16/18 18:42 05/16/18 18:42 05/16/18 18:42 Interpretation: Normal - General General appearance: Appears well, Alert - HEENT Head: Normocephalic, Atraumatic Eyes: Normal Pupils: PERRL Ears: Normal External canal: Blood in canal, Other - Laceration to the inner canal on the left ear Tympanic membrane: Normal Sinus: Normal Nasal: Purulent discharge, Swelling Mouth/Lips: Normal Mucous membranes: Normal Pharynx: Post nasal drainage Neck: Normal - Respiratory Respiratory status: No respiratory distress Chest status: Nontender Breath sounds: Normal Chest palpation: Normal - Cardiovascular Rhythm: Regular Heart sounds: Normal auscultation Murmur: No - Abdominal Inspection: Normal Distension: No distension Bowel sounds: Normal Tenderness: Nontender Organomegaly: No organomegaly - Back Back: Normal, Nontender - Extremities General upper extremity: Normal inspection, Nontender, Normal color, Normal ROM , Normal temperature General lower extremity: Normal inspection, Nontender, Normal color, Normal ROM , Normal temperature, Normal weight bearing. No: Trung's sign - Neurological Neuro grossly intact: Yes Cognition: Normal Orientation: AAOx4 Gustine Coma Scale Eye Opening: Spontaneous Aric Coma Scale Verbal: Oriented Gustine Coma Scale Motor: Obeys Commands Gustine Coma Scale Total: 15 Speech: Normal Motor strength normal: LUE, RUE, LLE, RLE Sensory: Normal - Psychological Associated symptoms: Normal affect, Normal mood - Skin Skin Temperature: Warm Skin Moisture: Dry Skin Color: Normal Course - Re-evaluation Re-evalutation: 05/16/18 23:04 Patient was treated with Cipro eardrops for the laceration to the left ear canal. Patient was also given Sudafed Mucinex for his cough and cold symptoms. Patient was instructed to follow-up with his primary doctor while the next day to follow-up with his symptoms and to ensure that his ear is improving with the eardrops. - Vital Signs Vital signs: Temp Pulse Resp BP Pulse Ox 98.3 F 74 16 112/71 99 05/16/18 20:37 05/16/18 20:37 05/16/18 18:42 05/16/18 20:37 05/16/18 20:37 Discharge - Discharge Clinical Impression: Otalgia of left ear URI (upper respiratory infection) Qualifiers: URI type: unspecified URI Qualified Code(s): J06.9 - Acute upper respiratory infection, unspecified Laceration of left ear canal Qualifiers: Encounter type: initial encounter Qualified Code(s): S01.312A - Laceration without foreign body of left ear, initial encounter Condition: Stable Disposition: HOME, SELF-CARE Additional Instructions: NON-SUTURED LACERATION: Your laceration did not require suturing. Some lacerations cannot be sutured because of increased infection risk, while others simply don't need stitches because they are shallow or very short. Your injury should be protected while it heals. Usually complete healing takes 10 to 14 days. Keep the dressing clean and dry, and change it every day. If you notice increasing pain, redness, swelling, drainage, or tender lumps in the armpit or groin above the injury, infection may be present. You should call the doctor at once. USE OF EAR DROPS: Your ear drops won't do much good if they don't get all the way in. To help the ear drops penetrate all the way to the ear drum, use the following technique. If you encounter problems of any kind, notify the physician. (1) Lay your head sideways on a pillow. (2) Place the dropper tip just barely inside the ear canal, almost touching the bottom side of the canal. The liquid is tolerated better on the bottom of the canal. (3) Squeeze out the appropriate amount of medicine, and remove the dropper. (4) Grab the back of the ear (just behind the ear canal) between your index finger and thumb. (5) Tug up, then let the ear drop back. Repeat several times. This pumps the medicine down. (6) Wait five minutes, then place a cotton ball in the ear canal to catch and hold the medicine. CIPROFLOXACIN: You have been given an antibacterial agent, ciprofloxacin (Cipro). This medicine is not related to the penicillins, sulfas, cephalosporins, or tetracyclines. It is often given to patients who are allergic to these drugs. It has been chosen for you either because other drugs are not appropriate, or because of the nature of your problem. Cipro should not be taken with antacids, as these can decrease its effectiveness. It can be taken without regard to meals. CIPRO SHOULD NOT BE TAKEN BY CHILDREN, NURSING WOMEN, OR WOMEN. Although Cipro is usually well-tolerated, common side effects can include nausea and diarrhea. Contact your doctor if you experience any unusual symptoms while on this medication, such as joint pain or swelling, shortness of breath, wheezing, faintness, or hives. UPPER RESPIRATORY ILLNESS: You have a viral infection of the respiratory passages -- a "cold." This common infection causes nasal congestion, drainage, and often sore throat and cough. It is highly contagious. The disease usually lasts about 10 to 14 days. There is no "cure" for the viral infection -- it must run its course. If there is a complication, such as bacterial infection in the nose, sinuses, middle ear, or bronchial tubes, antibiotics may be required. The antibiotics won't affect the virus. Drink plenty of fluids. A humidifier may help. An expectorant medication or decongestant may make you more comfortable. Use acetaminophen or ibuprofen for fever or aches. See the doctor if fever persists over two days, if there is any significant worsening of your symptoms, or if you simply fail to improve as expected. DECONGESTANT MEDICATION: A decongestant medicine has been suggested. Often this medicine is combined in the same tablet with an antihistamine or expectorant. This type of medicine is helpful in treating a bad cold or sinus condition, as well as in treatment of the nasal congestion of hay fever. It is not of much benefit for lung infections. Decongestant medicines are related to stimulants. They can cause an increase in blood pressure and heart rate. Persons with heart disease and high blood pressure should not take decongestants without discussing this with the physician. If you develop palpitations, chest pain, headache, or tremors, stop the medicine and consult your physician. You were treated with Sudafed and Mucinex tonight. Sudafed you can get over- the-counter he have to ask the pharmacist. Mucinex can buy [id number] you at the 600 mg. COUGH-SUPPRESSANT & EXPECTORANT MEDICATION: You are to use a cough medication as needed for relief of symptoms. This medicine is a combination of an expectorant (to make the mucous thinner and more easily "coughed up") and a cough suppressant (to reduce the frequency of coughing). The cough-suppressant medicine is related to narcotics. You may experience mild nausea and sleepiness. Some patients who are very sensitive to narcotics may have stomach pain from this medicine. Taking the medicine with food reduces these side effects. Do not drive or work with machinery until you know how this medicine affects you. The expectorant should have no side effects. Iodine-containing expectorants (such as organidin) should not be taken by persons with active thyroid disease unless approved by your doctor. Call the doctor if you develop shortness of breath, hives, rash, itching, lightheadedness, or severe nausea and vomiting. USE OF ACETAMINOPHEN (Tylenol): Acetaminophen may be taken for pain relief or fever control. It's much safer than aspirin, offering a wider range of "safe" dosages. It is safe during . Some brand names are Tylenol, Panadol, Datril, Anacin 3, Tempra, and Liquiprin. Acetaminophen can be repeated every four hours. The following are maximum recommended dosages: >89 pounds or adults 650 mg to 900 mg Acetaminophen can be repeated every four hours. Maximum dose not to exceed 4000 mg a day. SMOKING: If you smoke, you should stop smoking. The tar and chemicals in cigarette smoke are harmful. Smoking has been shown to cause: emphysema chronic bronchitis lung cancer mouth and throat cancer stomach and pancreas cancer premature aging defects In addition, smoking increases ear and lung infections in children of smokers. FOLLOW-UP CARE: If you have been referred to a physician for follow-up care, call the physician s office for an appointment as you were instructed or within the next two days. If you experience worsening or a significant change in your symptoms, notify the physician immediately or return to the Emergency Department at any time for re-evaluation. Prescriptions: Ciprofloxacin HCl/Dexameth [Ciprodex Otic Suspension 7.5 ml Bottle] 4 drop LFT_ EAR BID #1 bottle Forms: Smoking Cessation Education, Return to Work Referrals: SUNNY WILLIAMSON MD [Primary Care Provider] - Follow up tomorrow
[2018-05-16 20:37] VITALS: BP 112/71
== END 2018-05-16 20:48 | disposition home or self-care (01) ==
LOC: ER 18:17
DX: H92.02 Otalgia, left ear (principal); J06.9 Acute upper respiratory infection, unspecified; S01.312A Laceration without foreign body of left ear, initial encounter; X58.XXXA Exposure to other specified factors, initial encounter; F17.210 Nicotine dependence, cigarettes, uncomplicated; E03.9 Hypothyroidism, unspecified
CPT/HCPCS: 99406; 99282; J3490 ×2

== ENCOUNTER 2018-08-21 20:28 | Emergency (ER) | payer OTHER, MEDICAID ==
[2018-08-21 20:44] VITALS: BP 133/96
[2018-08-21] MEDS ORDERED: LIDOCAINE 1% INJ-PF (10 MG/ML) 30 ML SDV INJ ONE (23:08)
--- NOTE | 2018-08-21 23:52 | ER Document Report ---
ED General - General Chief Complaint: Laceration Stated Complaint: THUMB LACERATION Time Seen by Provider: 08/21/18 22:56 Notes: Patient is a pleasant 33-year-old male presents with complaint of a thumb laceration. He works in [employer]. He says he was cutting shingles with a razor and cut his left thumb. Denies any numbness into the thumb. He says his thumb is swollen and makes it difficult to fully flex his thumb but he is able to do some flexion. He has had a tetanus shot within the last 5 years. He denies any other injuries. TRAVEL OUTSIDE OF THE [place] IN LAST 30 DAYS: No - Related Data Allergies/Adverse Reactions: No Known Allergies Allergy (Verified 05/16/18 19:36) Past Medical History - Social History Smoking Status: Current Every Day Smoker Chew tobacco use (# tins/day): No Frequency of alcohol use: None Drug Abuse: None Family History: None Patient has suicidal ideation: No Patient has homicidal ideation: No Endocrine Medical History: Reports: Hx Hypothyroidism Renal/ Medical History: Denies: Hx Peritoneal Dialysis Musculoskeletal Medical History: Reports Hx Musculoskeletal Deformity, Reports Hx Musculoskeletal Trauma - Torn right labrum Past Surgical History: Reports: Hx Orthopedic Surgery - right shoulder, surgery for torn labrum, left hand lump removed - Immunizations Immunizations up to date: Yes Hx Diphtheria, Pertussis, Tetanus Vaccination: No Review of Systems - Review of Systems Notes: My Normal Review Basic REVIEW OF SYSTEMS: CONSTITUTIONAL : Denies fever, chills, or sweats. Denies recent illness. MUSCULOSKELETAL: Laceration right thumb SKIN: Denies rash or skin lesions. HEMATOLOGIC : Denies easy bruising or bleeding. NEUROLOGICAL: Denies sensory or motor loss. ALL OTHER SYSTEMS REVIEWED AND NEGATIVE. Physical Exam - Vital signs Vitals: Temp Pulse Resp BP Pulse Ox 98.0 F 61 16 133/96 H 99 08/21/18 20:43 08/21/18 20:43 08/21/18 20:43 08/21/18 20:43 08/21/18 20:43 - Notes Notes: General Appearance: Well nourished, alert, cooperative, no acute distress, no obvious discomfort. Vitals: reviewed, See vital signs table. Eyes: PERRL, EOMI, Conjuctiva clear Extremities: , good pulses in all extremities, patient has a 2 cm laceration on the pad and ulnar aspect of the left thumb. No active bleeding at this time. Distal sensation intact. Patient is able to partially flex the DIP of the left thumb. After I numbed the thumb he is able to flex it further. He does have some swelling to the thumb which I think likely is inhibiting some of his flexion. When I explored the wound the laceration goes almost parallel with the thumb itself. I do not see the tendon itself however I cannot see all the way down to the base of the wound because of its orientation. Skin: warm, dry, appropriate color, no rash Neuro: speech clear, oriented x 3, normal affect, responds appropriately to questions. Course - Re-evaluation Re-evalutation: 08/22/18 04:54 Wound was thoroughly irrigated and cleaned. It was sutured closed. I also placed Dermabond over a smaller very superficial laceration that was just below the main laceration. Patient has majority of flexion intact. What little flexion the patient cannot do seems to be inhibited by the fact that his thumb is swollen from the injury. I informed the patient that if he does not have full recovery of his flexion within 2 days that he should follow-up with Dr. Monet for reevaluation being that I cannot see all the way down to the base of the laceration. He already sees Dr. Monet for a comp occasion of his elbow and therefore is already established with him. He said he would call Dr. Monet for follow-up if he does not get stability of complete flexion after the swelling goes down. I encourage him return to ER if he has any redness, increasing swelling, or signs of infection. I informed him to keep the thumb covered to help reduce dirt or bacteria from getting into the wound. - Vital Signs Vital signs: Temp Pulse Resp BP Pulse Ox 98.0 F 61 16 133/96 H 99 08/21/18 20:43 08/21/18 20:43 08/21/18 20:43 08/21/18 20:43 08/21/18 20:43 Procedures - Laceration/Wound Repair left thumb Wound length (cm): 2 Wound's Depth, Shape: Linear Anesthetic type: 1% Lidocaine Volume Anesthetic (mLs): 1 Wound explored: Clean Irrigated w/ Saline (mLs): 30 Wound Repaired With: Sutures, Dermabond Suture Size/Type: 5:0, Ethilon Number of Sutures: 3 Discharge - Discharge Clinical Impression: Laceration Condition: Good Disposition: HOME, SELF-CARE Additional Instructions: LACERATION CARE: Your laceration has been sutured to keep the skin edges aligned during healing. The time of suture removal depends on the nature and location of your cut. Please follow the care instructions the doctor has outlined for you and return for further care, according to the schedule you've been given. Keep the wound and dressing clean. Unless you were told otherwise, you may shower daily, blotting the wound dry with a clean, unused towel. At other times, If the dressing gets wet or blood soaked, remove it and blot the wound dry, then reapply a new dressing. Unless you were instructed otherwise, dressings should be changed at least daily. If any signs of infection occur (swelling, redness, drainage, increasing tenderness, red streaks, tender lumps in the armpit or groin above the laceration, or fever), see the doctor immediately. SOAP CLEANSING: Gently wash the wound daily using a mild soap (like Ivory, Phisoderm, Neutrogena). Use warm water, rubbing gently until all debris, ooze, and crusting have been washed from the wound. Allow to dry briefly (about 10 minutes) after cleaning. Repeat this cleansing at least three times a day for the first two days and then once or twice a day. FOLLOW-UP CARE: Your sutures should be removed in __7___ days. To facilitate a timely removal of your sutures, you may return to the Emergency Department at [facility]. You do not need to call for an appointment, but the best time to come in for suture removal is early in the morning. If you have been referred to another physician for follow-up care, call that physicians office for an appointment as you were instructed. If you experience a significant change in your laceration, or if you are concerned there may be an infection (swelling, redness, drainage, increasing tenderness, red streaks, tender lumps in the armpit or groin above the laceration, or fever) , return to the Emergency Department immediately re-evaluation. Please follow up with Dr. Monet this week if you are still having any difficulty flexing your thumb after 2 days. Referrals: RENAY MONET DO [ACTIVE STAFF] - Follow up in 3-5 days
== END 2018-08-22 00:01 | disposition home or self-care (01) ==
LOC: ER 20:28
DX: S61.012A Laceration without foreign body of left thumb without damage to nail, initial encounter (principal); W26.8XXA Contact with other sharp object(s), not elsewhere classified, initial encounter; Y93.H3 Activity, building and construction; Y99.0 Civilian activity done for income or pay; F17.200 Nicotine dependence, unspecified, uncomplicated
CPT/HCPCS: 99282

== ENCOUNTER → 2018-09-18 | Day surgery (SDC) | payer MEDICAID ==
--- NOTE | 2018-09-18 16:03 | RADIOLOGY REPORT (SQ) ---
EXAM DESCRIPTION: ARTHRO HIP INJ W/ANESTHESIA; FLUORO/NEEDLE PLACEMENT COMPLETED DATE/TIME: 09/18/2018 3:13 pm REASON FOR STUDY: RIGHT HIP PAIN M25.551 PAIN IN RIGHT HIP COMPARISON: None. FLUOROSCOPY TIME: 0.09 minutes. 1 images saved to PACS. LIMITATIONS: None. PROCEDURE: Procedure, risks, benefits and alternatives explained to patient who then gave written c onsent. The right hip was marked and a time-out was called for correct marking verification. Entry site marked using fluoroscopic guidance. Hip prepped and draped using sterile technique. Local ane sthesia achieved using 1% lidocaine injection. Hypodermic needle introduced into the joint space un angela direct fluoroscopic visualization. Non-ionic contrast instilled to confirm intra-articular posit ion. Dilute gadolinium solution then injected. Needle removed and entry site covered with sterile bandage. No immediate complications noted. TECHNIQUE: Digital images acquired during fluoroscopy and stored on PACS. Patient immediately take n to the MR suite for additional imaging. INJECTION LOCATION: Right hip. CONTRAST TYPE AND AMOUNT: 1 mL Omnipaque and 10 mL Dotarem/Saline mixture. IMPRESSION: SUCCESSFUL NEEDLE PLACEMENT AND INJECTION FOR RIGHT HIP MR ARTHROGRAM. COMMENT: Quality ID 145: Final reports for procedures using fluoroscopy that document radiation exp osure indices, or exposure time and number of fluorographic images (if radiation exposure indices are not available) TECHNICAL DOCUMENTATION: JOB ID: [id number] [employer]- All Rights Reserved Reading location - IP/workstation name: [email or web address]
--- NOTE | 2018-09-18 16:03 | RADIOLOGY REPORT (SQ) ---
EXAM DESCRIPTION: ARTHRO HIP INJ W/ANESTHESIA; FLUORO/NEEDLE PLACEMENT COMPLETED DATE/TIME: 09/18/2018 3:13 pm REASON FOR STUDY: RIGHT HIP PAIN M25.551 PAIN IN RIGHT HIP COMPARISON: None. FLUOROSCOPY TIME: 0.09 minutes. 1 images saved to PACS. LIMITATIONS: None. PROCEDURE: Procedure, risks, benefits and alternatives explained to patient who then gave written c onsent. The right hip was marked and a time-out was called for correct marking verification. Entry site marked using fluoroscopic guidance. Hip prepped and draped using sterile technique. Local ane sthesia achieved using 1% lidocaine injection. Hypodermic needle introduced into the joint space un angela direct fluoroscopic visualization. Non-ionic contrast instilled to confirm intra-articular posit ion. Dilute gadolinium solution then injected. Needle removed and entry site covered with sterile bandage. No immediate complications noted. TECHNIQUE: Digital images acquired during fluoroscopy and stored on PACS. Patient immediately take n to the MR suite for additional imaging. INJECTION LOCATION: Right hip. CONTRAST TYPE AND AMOUNT: 1 mL Omnipaque and 10 mL Dotarem/Saline mixture. IMPRESSION: SUCCESSFUL NEEDLE PLACEMENT AND INJECTION FOR RIGHT HIP MR ARTHROGRAM. COMMENT: Quality ID 145: Final reports for procedures using fluoroscopy that document radiation exp osure indices, or exposure time and number of fluorographic images (if radiation exposure indices are not available) TECHNICAL DOCUMENTATION: JOB ID: [id number] [employer]- All Rights Reserved Reading location - IP/workstation name: [email or web address]
--- NOTE | 2018-09-18 17:36 | RADIOLOGY REPORT (SQ) ---
EXAM DESCRIPTION: MRI RT LOWER JOINT WITH COMPLETED DATE/TIME: 09/18/2018 3:56 pm REASON FOR STUDY: RIGHT HIP PAIN M25.551 PAIN IN RIGHT HIP COMPARISON: Plain radiographs TECHNIQUE: Post arthrogram imaging is performed using T1 and T1 and T2 fat saturated sequences of th e pelvis and specific hip of interest. LIMITATIONS: None. FINDINGS: JOINT DISTENSION: Adequate. No loose body. BONE MARROW: No edema. No marrow replacement. FEMORAL HEAD, NECK, AND ACETABULUM: No occult fracture. No osteophytes or subchondral cysts. Normal s phericity of femoral head/neck junction. No acetabular dysplasia. No evidence of femoroacetabular imp ingement. PUBIC RAMI AND ISCHIUM: No occult fracture. SACRUM AND JOBY: SI joints normal in signal. No occult fracture. EFFUSIONS: None. LABRUM AND CARTILAGE: Small lateral labral tear without cartilaginous delamination. Minimal reactive edema of the adjacent acetabulum. MUSCLES AND SOFT TISSUES: Adductors and piriformis normal. Abductors and greater trochanteric bursa n ormal without edema or fluid. Iliopsoas bursa without fluid. Hamstring attachments without edema or t ear. PELVIC SOFT TISSUES: No masses or adenopathy. SCIATIC NERVE: Identified without masses. OTHER: No other significant finding. IMPRESSION: Small lateral labral tear. TECHNICAL DOCUMENTATION: JOB ID: [id number] [employer]- All Rights Reserved Reading location - IP/workstation name: [email or web address]
== END ==
LOC: RAD 14:40
PROVIDERS: ATTEND Physician Assistant
DX: M25.551 Pain in right hip (principal); S73.191A Other sprain of right hip, initial encounter; X58.XXXA Exposure to other specified factors, initial encounter
CPT/HCPCS: 73722; 77002; 27095; A9576

== ENCOUNTER 2018-12-12 18:50 | Emergency (ER) | payer MEDICAID ==
--- NOTE | 2018-12-12 21:11 | ER Document Report ---
ED General - General Chief Complaint: Post Surgical Pain Stated Complaint: RIGHT LEG PAIN Time Seen by Provider: 12/12/18 19:59 Primary Care Provider: SUNNY WILLIAMSON MD [Primary Care Provider] - Follow up as needed Mode of Arrival: Wheelchair Information source: Patient TRAVEL OUTSIDE OF THE [place] IN LAST 30 DAYS: No - HPI Patient complains to provider of: Pain in the right hip and right lower extremity Onset: Other - 33-year-old gentleman the presents for evaluation of pain in his right hip and right leg after having his labrum repaired yesterday arthroscopically. Notes that he called the on-call nursing line as they were checking up on him and told him that the leg was feeling swollen and discolored every time he changed positions, since leaving the hospital he is been using oxycodone in addition aspirin to try and help with the pain. He is an everyday smoker and is continued to smoke. Nothing is seem to make any better or worse. He has no other health problems does not take any medications except for Synthroid. Is never any blood clots in the past. Denies any shortness of breath chest pain abdominal pain diarrhea constipation dysuria or lightheadedness. - Related Data Allergies/Adverse Reactions: No Known Allergies Allergy (Verified 05/16/18 19:36) Past Medical History - General Information source: Patient, Relative - Social History Smoking Status: Current Every Day Smoker Chew tobacco use (# tins/day): No Frequency of alcohol use: Occasional Drug Abuse: None Family History: None Patient has suicidal ideation: No Patient has homicidal ideation: No Endocrine Medical History: Reports: Hx Hypothyroidism Renal/ Medical History: Denies: Hx Peritoneal Dialysis Musculoskeletal Medical History: Reports Hx Musculoskeletal Deformity, Reports Hx Musculoskeletal Trauma - Torn right labrum Past Surgical History: Reports: Hx Orthopedic Surgery - right shoulder, surgery for torn labrum, left hand lump removed, R hip - Immunizations Immunizations up to date: Yes Hx Diphtheria, Pertussis, Tetanus Vaccination: No Review of Systems - Review of Systems -: Yes All other systems reviewed and negative Physical Exam - Vital signs Vitals: Temp Pulse Resp BP Pulse Ox 98 F 107 H 18 130/86 H 98 12/12/18 19:01 12/12/18 19:01 12/12/18 19:01 12/12/18 19:12/12/18 19:01 - General General appearance: Appears well, Alert - HEENT Head: Normocephalic, Atraumatic Eyes: Normal Pupils: PERRL - Respiratory Respiratory status: No respiratory distress Chest status: Nontender Breath sounds: Normal Chest palpation: Normal - Cardiovascular Rhythm: Regular Heart sounds: Normal auscultation Murmur: No - Abdominal Inspection: Normal Distension: No distension Bowel sounds: Normal Tenderness: Nontender Organomegaly: No organomegaly - Back Back: Normal, Nontender - Extremities General upper extremity: Normal inspection, Nontender, Normal ROM, Normal strength Hip: Other - The right hip has a bandage overlying in place, underneath there is a well-appearing well approximated surgical incision scar - Neurological Neuro grossly intact: Yes Cognition: Normal Orientation: AAOx4 [place] Coma Scale Eye Opening: Spontaneous [place] Coma Scale Verbal: Oriented Aric Coma Scale Motor: Obeys Commands Aric Coma Scale Total: 15 Speech: Normal Motor strength normal: LUE, RUE, LLE, RLE Sensory: Normal - Psychological Associated symptoms: Normal affect, Normal mood Course - Re-evaluation Re-evalutation: 33-year-old man postoperative with pain and swelling in the right lower extremity. Presents for concern of a potential blood clot in the right lower extremity. On examination he does not demonstrate any obvious swelling or asymmetry in the other leg. We will plan for ultrasound. Ultrasound does not demonstrate any obvious blood clot in the right lower extremity. We will plan for patient undergo discharge with return precautions and expectant management. - Vital Signs Vital signs: Temp Pulse Resp BP Pulse Ox 98 F 77 18 127/76 H 100 12/12/18 19:01 12/12/18 22:26 12/12/18 22:26 12/12/18 22:26 12/12/18 22:26 Discharge - Discharge Clinical Impression: Post-op pain, Leg swelling Leg pain Qualifiers: Laterality: right Qualified Code(s): M79.604 - Pain in right leg Condition: Good Disposition: HOME, SELF-CARE Additional Instructions: You were seen today in the emergency department for the pain in your leg. I think that the pain in your leg is from your surgery. You had evaluation including a physical exam and an ultrasound of your leg. You should continue to take that aspirin that was prescribed to you moving forward. No blood clot was identified in your leg, I do not believe that you have a more serious injury at this time. Return in case you have worsening shortness of breath, fevers, chills or other symptoms. Otherwise follow-up with your surgeon as scheduled. Forms: Smoking Cessation Education Referrals: SUNNY WILLIAMSON MD [Primary Care Provider] - Follow up as needed
[2018-12-12 22:28] VITALS: BP 127/76
--- NOTE | 2018-12-13 09:09 | XCELERA REPORT ---
[address] [place] [facility] [address] Lower Extremity Venous Evaluation Procedure: Color flow and duplex imaging of the veins of the right lower extremity as well as the left Common Femoral vein. Right Sided Venous Evaluation Normal vessel filling wall to wall, compression and augmentation as well as Colour flow down to the infrageniculate veins. Left Sided Venous Evaluation The left common femoral vein is fully compressible. Spontaneous and phasic flow is present in the left common femoral vein. Interpretation Summary No duplex evidence of DVT or obstruction in the right lower extremity nor in the left Common Femoral vein. Name: FABIANA MEDRANO Age: 33 yrs Gender: Male : 1985 Patient Status: Emergency Patient Location: ER Study Date: 12/12/2018 08:29 PM Reason For Study: pain right leg / Hx clots Ordering Physician: MALLY MARINO Performed By: Sylvia Silva : MALLY MARINO > Robert Cardoza
== END 2018-12-12 22:26 | disposition home or self-care (01) ==
LOC: ER 18:50
DX: G89.18 Other acute postprocedural pain (principal); M79.89 Other specified soft tissue disorders; M79.604 Pain in right leg; M25.551 Pain in right hip; Z98.890 Other specified postprocedural states; Z79.899 Other long term (current) drug therapy; F17.200 Nicotine dependence, unspecified, uncomplicated
CPT/HCPCS: 93971; 99283

== ENCOUNTER 2019-09-24 18:14 | Emergency (ER) | payer SELFPAY ==
[2019-09-24] MEDS ORDERED: KETOROLAC TROMETHAMINE INJ/PF 30 MG/1 ML SDV IV ONE ×2 (19:19→21:13)
[2019-09-24] MEDS ORDERED: HYDROMORPHONE HCL INJ/PF 2 MG/ML AMPULE IV ONE (19:19)
--- NOTE | 2019-09-24 19:19 | ER Document Report ---
ED Medical Screen (RME) - General Chief Complaint: Back Pain Stated Complaint: BACK PAIN Time Seen by Provider: 09/24/19 18:52 Primary Care Provider: SUNNY WILLIAMSON MD [Primary Care Provider] - Follow up as needed Notes: 34-year-old male with history of a right hip surgery by Dr. Garcia out [facility] presents to the emergency department with an acute lower back/right hip injury. Patient states that he was using and asked to cut trees in his ditch and when he took a swing he heard and felt a pop, paused, stood up and walked approximately 30 feet, then collapsed to the ground. Patient was unable to get up and ambulate and was brought in by EMS. Patient denies any urinary retention or bowel incontinence, denies saddle anesthesia, complains of right lower extremity weakness, pain is severe and radiating down his right leg, he does have numbness and tingling of his right lower extremity. Exam: Nontoxic appearing in mild distress, patient with 4/5 dorsiflexion and plantarflexion strength, 4/5 strength for knee flexion and extension, 3/5 strength with hip flexion in the wheelchair, sensation intact to light touch, PT pulse palpated I have greeted and performed a rapid initial assessment of this patient. A comprehensive ED assessment and evaluation of the patient, analysis of test results and completion of medical decision making process will be conducted by an additional ED providers. TRAVEL OUTSIDE OF THE [place] IN LAST 30 DAYS: No - Related Data Allergies/Adverse Reactions: No Known Allergies Allergy (Verified 05/16/18 19:36) Home Medications: levothyroxine 175 mcg Past Medical History - Social History Chew tobacco use (# tins/day): No Frequency of alcohol use: Occasional Family history: None Endocrine Medical History: Reports: Hx Hypothyroidism Renal/ Medical History: Denies: Hx Peritoneal Dialysis Musculoskeltal Medical History: Reports Hx Musculoskeletal Deformity, Reports Hx Musculoskeletal Trauma - Torn right labrum Past Surgical History: Reports: Hx Orthopedic Surgery - right shoulder, surgery for torn labrum, left hand lump removed, R hip - Immunizations Immunizations up to date: Yes Hx Diphtheria, Pertussis, Tetanus Vaccination: No Physical Exam - Vital signs Vitals: Temp Pulse Resp BP Pulse Ox 97.7 F 87 20 150/86 H 99 09/24/19 18:44 09/24/19 18:44 09/24/19 18:44 09/24/19 18:44 09/24/19 18:44 Course - Vital Signs Vital signs: Temp Pulse Resp BP Pulse Ox 97.7 F 87 20 150/86 H 99 09/24/19 18:44 09/24/19 18:44 09/24/19 18:44 09/24/19 18:44 09/24/19 18:44 Doctor's Discharge - Discharge Referrals: SUNNY WILLIAMSON MD [Primary Care Provider] - Follow up as needed
[2019-09-24] MEDS ORDERED: ACETAMINOPHEN 325 MG TABLET PO ONE (19:20)
--- NOTE | 2019-09-24 20:19 | RADIOLOGY REPORT (SQ) ---
EXAM DESCRIPTION: [facility]: CT LUMBAR SPINE WITHOUT IV CONTRAST CLINICAL HISTORY: 34 years Male; Acute injury, cannot walk TECHNIQUE: Noncontrast lumbar spine CT with sagittal and coronal reconstructions. All CT scans at this facility use dose modulation, iterative reconstruction, and/or weight based dosing when appropriate to reduce radiation dose to as low as reasonably achievable. COMPARISON: None. FINDINGS: Alignment is anatomic. L4-L5: Moderate disc space narrowing with mild endplate sclerosis. L5-S1: Moderate disc space narrowing. No subluxation. There is no acute fracture. Vertebral heights are preserved. No epidural hematoma. IMPRESSION: 1. No acute fracture or subluxation of the lumbar spine. 2. Degenerative changes in the lower lumbar spine, most severe at L4-L5.
[2019-09-24] MEDS ORDERED: DEXAMETHASONE SOD PHOS INJ 10 MG/1 ML VIAL IM ONE (21:13)
--- NOTE | 2019-09-24 21:18 | ER Document Report ---
ED General - General Chief Complaint: Back Pain Stated Complaint: BACK PAIN Time Seen by Provider: 09/24/19 18:52 Primary Care Provider: SUNNY WILLIAMSON MD [Primary Care Provider] - Follow up tomorrow Notes: Patient is a 34-year-old male who presents to the emergency department with a chief complaint of back pain. Patient states that he has pain to his mid lower back and on bilateral sides. Patient states that he does have chronic back pain, but has had checked out by his primary care provider. Today he was working with an ax and felt his back pop. He was able to get up, and then felt another pop in his back. Patient also has history of a labral tear which was repaired. Patient states that he continues to have pain in his back. TRAVEL OUTSIDE OF THE [place] IN LAST 30 DAYS: No - Related Data Allergies/Adverse Reactions: No Known Allergies Allergy (Verified 05/16/18 19:36) Home Medications: levothyroxine 175 mcg Past Medical History - Social History Smoking Status: Current Every Day Smoker Chew tobacco use (# tins/day): No Frequency of alcohol use: Occasional Family History: None Patient has suicidal ideation: No Patient has homicidal ideation: No Endocrine Medical History: Reports: Hx Hypothyroidism Renal/ Medical History: Denies: Hx Peritoneal Dialysis Musculoskeletal Medical History: Reports Hx Musculoskeletal Deformity, Reports Hx Musculoskeletal Trauma - Torn right labrum Past Surgical History: Reports: Hx Orthopedic Surgery - right shoulder, surgery for torn labrum, left hand lump removed, R hip - Immunizations Immunizations up to date: Yes Hx Diphtheria, Pertussis, Tetanus Vaccination: No Review of Systems - Review of Systems Notes: REVIEW OF SYSTEMS: CONSTITUTIONAL : Denies recent illness. Denies recent unintentional weight loss. Denies fever, chills, or sweats. EENT: Denies eye, ear, throat, or mouth pain, discharge, or symptoms. Denies nasal or sinus congestion. CARDIOVASCULAR: Denies chest pain. RESPIRATORY: Denies shortness of breath, cough, congestion, difficulty breathing, or wheezing. GASTROINTESTINAL: Denies nausea, vomiting, and diarrhea. Denies abdominal pain. Denies constipation. GENITOURINARY: Denies difficulty urinating, burning, blood in urine, urgency or frequency. MUSCULOSKELETAL: See HPI. SKIN: Denies rash, itchiness, or lesions HEMATOLOGIC : Denies easy bruising or bleeding. LYMPHATIC: Denies swollen, painful, enlarged glands. NEUROLOGICAL: Denies no numbness or tingling denies weakness. Denies headache. Denies altered mental status. Denies alteration in speech. PSYCHIATRIC: Denies stress, anxiety, alteration in sleep patterns, or depression. All other systems reviewed and negative. Physical Exam - Vital signs Vitals: Temp Pulse Resp BP Pulse Ox 97.7 F 87 20 150/86 H 99 09/24/19 18:44 09/24/19 18:44 09/24/19 18:44 09/24/19 18:44 09/24/19 18:44 - Notes Notes: PHYSICAL EXAMINATION: GENERAL: Appears well, healthy, well-nourished, no acute distress. HEAD: Normocephalic, atraumatic. EYES: PERRL, conjunctiva normal, all extraocular movements intact, sclera nonicteric ENT: Moist mucous membranes. NECK: Supple, no noticeable swelling, redness, rash. Normal range of motion. LUNGS: Equal breath sounds bilaterally and clear to auscultation. No wheezes rales or rhonchi. CARDIOVASCULAR: S1-S2, regular rate, regular rhythm. Radial pulses 2+, normal. ABDOMEN: Normoactive bowel sounds. Soft, nontender, no guarding, no rebound tenderness, and no masses palpated. EXTREMITIES: Decreased range of motion to right lower extremity. NEUROLOGICAL: Moves all extremities upon command. Strength 4/5 in bilateral lower extremities. PSYCH: Normal mood, normal affect. SKIN: Warm, dry. No rash, lesions, ulcerations noted. Normal skin turgor. Course - Re-evaluation Re-evalutation: 09/24/19 21:30 CT of the lumbar spine does not show any fracture he also has some degenerative changes in his lumbar spine especially at L4 and L5. Also the area of most to his pain. He also has pain to his paraspinal muscles. Patient will be placed on Robaxin. Crutches will be provided and he will follow-up with his primary care provider. I have very low suspicion for any life-threatening etiology at this time. Follow-up precautions were given. Verbal discharge instructions were given to the patient. They verbalized understanding. They are stable for discharge. - Vital Signs Vital signs: Temp Pulse Resp BP Pulse Ox 98.1 F 75 16 111/88 H 99 09/24/19 22:08 09/24/19 22:08 09/24/19 22:08 09/24/19 22:08 09/24/19 22:08 Procedures - Immobilization Right Hip Pre-Proc Neuro Vasc Exam: Normal Immobilizer type: Crutches Performed by: PCT Post-Proc Neuro Vasc Exam: Normal, Unchanged from pre-exam Alignment checked and good: Yes Discharge - Discharge Clinical Impression: Back pain Qualifiers: Back pain location: low back pain Chronicity: acute Back pain laterality: bilateral Sciatica presence: without sciatica Qualified Code(s): M54.5 - Low back pain Condition: Stable Disposition: HOME, SELF-CARE Instructions: Low Back Pain ([facility]), Muscle Strain ([facility]), Warm Packs ([facility]) Additional Instructions: You were seen today in the emergency department for back pain after working with your ax at home. CT shows that you have degenerative changes in your back, meaning that this is a chronic issue. Your muscles in your back are also tense. You are being sent home with Robaxin, a muscle relaxer. You are also being sent home with crutches to help you walk. Use your left leg, as this leg is stronger. Please follow-up with your primary care provider in regards to this visit. If you lose bladder or bowel function, please return to the emergency department. Prescriptions: Methocarbamol [Robaxin 500 mg Tablet] 1,000 mg PO BID PRN #20 tablet PRN Reason: Forms: Return to Work Referrals: SUNNY WILLIAMSON MD [Primary Care Provider] - Follow up tomorrow
[2019-09-24 22:08] VITALS: BP 111/88
== END 2019-09-24 22:08 | disposition home or self-care (01) ==
LOC: ER 18:14
DX: M47.9 Spondylosis, unspecified (principal); M54.5 Low back pain; F17.200 Nicotine dependence, unspecified, uncomplicated; E03.9 Hypothyroidism, unspecified; Z79.899 Other long term (current) drug therapy
CPT/HCPCS: 72131; J1885; J1100; 96374; 96375; 99284

== ENCOUNTER 2020-01-16 14:10 | Observation (INO) | payer SELFPAY ==
--- NOTE | 2020-01-16 15:32 | ER Document Report ---
ED Medical Screen (RME) - General Chief Complaint: Leg Pain Stated Complaint: LEG PAIN Time Seen by Provider: 01/16/20 15:26 Primary Care Provider: SUNNY WILLIAMSON MD [Primary Care Provider] - Follow up as needed Mode of Arrival: Ambulatory Information source: Patient Notes: 34-year-old male presented to ED for complaint of pain swelling redness to the right lower leg up to the knee. He states he hit himself in his segura with an auger on Tuesday. He states he was fine until yesterday when it was started with redness and swelling now the redness is gone up from where the injury is up to the knee and down to the ankle. He also has a old scab on the right ankle from about 2 weeks ago. Patient is alert oriented respirations regular nonlabored speaking in full sentences. I have greeted and performed a rapid initial assessment of this patient. A comprehensive ED assessment and evaluation of the patient, analysis of test results and completion of medical decision making process will be conducted by an additional ED providers. TRAVEL OUTSIDE OF THE [place] IN LAST 30 DAYS: Yes - Related Data Allergies/Adverse Reactions: No Known Allergies Allergy (Verified 01/16/20 15:26) Past Medical History - Social History Family history: None Endocrine Medical History: Reports: Hx Hypothyroidism Renal/ Medical History: Denies: Hx Peritoneal Dialysis Musculoskeltal Medical History: Reports Hx Musculoskeletal Deformity, Reports Hx Musculoskeletal Trauma - Torn right labrum Past Surgical History: Reports: Hx Orthopedic Surgery - right shoulder, surgery for torn labrum, left hand lump removed, R hip - Immunizations Immunizations up to date: Yes Hx Diphtheria, Pertussis, Tetanus Vaccination: No Physical Exam - Vital signs Vitals: Temp Pulse Resp BP Pulse Ox 99.1 F 106 H 18 137/79 H 100 01/16/20 15:10 01/16/20 15:10 01/16/20 15:10 01/16/20 15:10 01/16/20 15:10 Course - Vital Signs Vital signs: Temp Pulse Resp BP Pulse Ox 99.1 F 106 H 18 137/79 H 100 01/16/20 15:10 01/16/20 15:10 01/16/20 15:10 01/16/20 15:10 01/16/20 15:10 Doctor's Discharge - Discharge Referrals: SUNNY WILLIAMSON MD [Primary Care Provider] - Follow up as needed
--- NOTE | 2020-01-16 16:02 | RADIOLOGY REPORT (SQ) ---
EXAM DESCRIPTION: TIBIA FIBULA RIGHT COMPLETED DATE/TIME: 01/16/2020 3:47 pm REASON FOR STUDY: Pain swelling injury right lower leg COMPARISON: None. NUMBER OF VIEWS: Two views. TECHNIQUE: Two radiographic images acquired of the right tibia and fibula to include the knee and an kle in at least one projection. LIMITATIONS: None. FINDINGS: MINERALIZATION: Normal. BONES: No acute fracture or dislocation. No periosteal reaction. SOFT TISSUES: No soft tissue swelling or radiopaque foreign body. OTHER: No other finding. IMPRESSION: No acute osseous abnormality of the right tibia and fibula. TECHNICAL DOCUMENTATION: JOB ID: [id number] [employer]- All Rights Reserved Reading location - IP/workstation name: [email or web address]
[2020-01-16 16:55] LABS: ABSOLUTE BASOPHILS # (AUTO) 0.1 10^3/uL (0.0-0.2); ABSOLUTE EOSINOPHILS # (AUTO) 0.1 10^3/uL (0.0-0.6); ABSOLUTE LYMPHOCYTES (AUTO) 1.5 10^3/uL (0.5-4.7); ABSOLUTE MONOCYTES (AUTO) 1.3 10^3/uL (0.1-1.4); ABSOLUTE NEUT (AUTO) 13.9 10^3/uL (1.7-8.2); BASOPHILS % (AUTO) 0.4 % (0-2); EOSINOPHILS % (AUTO) 0.4 % (0-6); HEMATOCRIT 39.9 % (37.9-51.0); HEMOGLOBIN 14.2 g/dL (13.5-17.0); LYMPHOCYTES % (AUTO) 9.1 % (13-45); MEAN CORPUSCULAR HEMOGLOBIN 34.1 pg (27.0-33.4); MEAN CORPUSCULAR HGB CONC 35.6 g/dL (32.0-36.0); MEAN CORPUSCULAR VOLUME 96 fl (80-97); MONOCYTES % (AUTO) 7.9 % (3-13); PLATELET COUNT 217 10^3/uL (150-450); RED BLOOD COUNT 4.17 10^6/uL (4.35-5.55); RED CELL DISTRIBUTION WIDTH 13.2 % (11.5-14.0); SEGMENTED NEUTROPHILS % (AUTO) 82.2 % (42-78); TOTAL CELLS COUNTED % (AUTO) 100 %; WHITE BLOOD COUNT 16.9 10^3/uL (4.0-10.5)
[2020-01-16 17:28] LABS: ALBUMIN 4.8 g/dL (3.5-5.0); ALKALINE PHOSPHATASE 68 U/L (38-126); ANION GAP 13 (5-19); ASPARTATE AMINO TRANSFERASE 26 U/L (17-59); BILIRUBIN,DIRECT 0.3 mg/dL (0.0-0.4); BILIRUBIN,TOTAL 0.8 mg/dL (0.2-1.3); BLOOD UREA NITROGEN 12 mg/dL (7-20); CALCIUM 9.6 mg/dL (8.4-10.2); CARBON DIOXIDE 27 mmol/L (22-30); CHLORIDE 97 mmol/L (98-107); GLUCOSE 98 mg/dL (75-110); POTASSIUM 4.1 mmol/L (3.6-5.0); TOTAL PROTEIN 7.8 g/dL (6.3-8.2)
[2020-01-16] MEDS ORDERED: VANCOMYCIN HCL INJ 1000 MG VIAL IV ONE (17:50)
[2020-01-16] MEDS ORDERED: CEFTRIAXONE 1 GM/D5W RTU 1 GM/50 ML RTUPB IV ONE (17:50)
--- NOTE | 2020-01-16 17:54 | ER Document Report ---
ED General - General Chief Complaint: Leg Pain Stated Complaint: LEG PAIN Time Seen by Provider: 01/16/20 15:26 Primary Care Provider: SUNNY WILLIAMSON MD [Primary Care Provider] - Follow up as needed Mode of Arrival: Ambulatory TRAVEL OUTSIDE OF THE [place] IN LAST 30 DAYS: Yes - HPI Notes: Patient is a 34-year-old male with history of Graves' disease who presents complaining of redness, swelling, pain to his right lower anterior leg. Patient states that a few days ago he hit his leg with an auger. Recently he then scraped the anterior part of his leg on a platform. No h/o MRSA or IV drug abuse. He has had subjective fever at home as well. He is able to eat and drink without difficulty. He is urinating normally and having normal bowel movements were denies drug allergies. Denies any headache, fever, neck pain, URI, sore throat, chest pain, palpitations, syncope, cough, shortness of breath, wheeze, dyspnea, abdominal pain, nausea/vomiting/diarrhea, urinary retention, dysuria, hematuria, loss of control of bowel or bladder, numbness/tingling, saddle anesthesia, muscle paralysis/weakness. - Related Data Allergies/Adverse Reactions: No Known Allergies Allergy (Verified 01/16/20 15:26) Past Medical History - General Information source: Patient - Social History Smoking Status: Current Every Day Smoker Chew tobacco use (# tins/day): No Frequency of alcohol use: Occasional Drug Abuse: None Family History: None Patient has suicidal ideation: No Patient has homicidal ideation: No Endocrine Medical History: Reports: Hx Hypothyroidism Renal/ Medical History: Denies: Hx Peritoneal Dialysis Musculoskeletal Medical History: Reports Hx Musculoskeletal Deformity, Reports Hx Musculoskeletal Trauma - Torn right labrum Past Surgical History: Reports: Hx Orthopedic Surgery - right shoulder, surgery for torn labrum, left hand lump removed, R hip - Immunizations Immunizations up to date: Yes Hx Diphtheria, Pertussis, Tetanus Vaccination: No Review of Systems - Review of Systems -: Yes All other systems reviewed and negative Physical Exam - Vital signs Vitals: Temp Pulse Resp BP Pulse Ox 99.1 F 106 H 18 137/79 H 100 01/16/20 15:10 01/16/20 15:10 01/16/20 15:10 01/16/20 15:10 01/16/20 15:10 - Notes Notes: PHYSICAL EXAMINATION: GENERAL: Well-appearing, well-nourished and in no acute distress. HEAD: Atraumatic, normocephalic. EYES: Pupils equal round and reactive to light, extraocular movements intact, sclera anicteric, conjunctiva are normal. ENT: Nares patent and without discharge. oropharynx clear without exudates. No tonsilar hypertrophy or erythema. Moist mucous membranes. NECK: Normal range of motion, supple without lymphadenopathy LUNGS: Breath sounds clear to auscultation bilaterally and equal. No wheezes rales or rhonchi. HEART: Regular rate and rhythm without murmurs, rubs, gallops. Musculoskeletal: Rt leg: + erythema and swelling to the rt anterior lower leg with tenderness appreciated. There is superficial purulence that was cultured. FROM to passive/active. Strength 5+/5. No foot drop. N/V intact distal. Extremities: No cyanosis, clubbing, or edema b/l. Peripheral pulses 2+. Capillary refill less than 3 seconds. NEUROLOGICAL: Normal speech, normal gait. Normal sensory, motor exams PSYCH: Normal mood, normal affect. SKIN: see above. Course - Re-evaluation Re-evalutation: 01/16/20 17:59 Dr. Zayas also eval'd patient and agrees with admit/plan: Patient is an afebrile, well-hydrated, 34-year-old male who presents with right lower extremity cellulitis. Vitals are except without significant tachycardia, tachypnea, hypoxia. PE is otherwise unremarkable. Patient is nontoxic- appearing and is tolerating p.o. without difficulty. He does have leukocytosis associated with a left shift. Vancomycin and Rocephin have been ordered. Tetanus has been ordered as well. I did speak with hospitalist, Dr. Alexandre, who accepted patient for admission to medical floor. - Vital Signs Vital signs: Temp Pulse Resp BP Pulse Ox 99.1 F 106 H 18 137/79 H 100 01/16/20 15:10 01/16/20 15:10 01/16/20 15:10 01/16/20 15:10 01/16/20 15:10 - Laboratory Result Diagrams: 01/16/20 16:35 01/16/20 16:35 Laboratory results interpreted by me: 01/16/20 01/16/20 16:35 16:35 WBC 16.9 H RBC 4.17 L MCH 34.1 H Lymph % (Auto) 9.1 L Absolute Neuts (auto) 13.9 H Seg Neutrophils % 82.2 H Sodium 136.9 L Chloride 97 L Discharge - Discharge Clinical Impression: Cellulitis of right lower leg Condition: Stable Disposition: ADMITTED INPATIENT Admitting Provider: Bettie (Hospitalist) Unit Admitted: Medical Floor Referrals: SUNNY WILLIAMSON MD [Primary Care Provider] - Follow up as needed
[2020-01-16] MEDS ORDERED: DIPH/PERTUSS(ACELL)/TETANUS VAC/PF 0.5 ML SYR (>=10YO) IM ONE (17:57)
[2020-01-16] MEDS ORDERED: MORPHINE SULFATE 10 MG/ML INJ IV PRN (18:33)
[2020-01-16] MEDS ORDERED: METOPROLOL TARTRATE PF/INJ 5 MG/5 ML SDV IV PRN (18:33)
[2020-01-16] MEDS ORDERED: HYDRALAZINE HCL INJ/PF 20 MG/1 ML SDV IV PRN (18:33)
[2020-01-16] MEDS ORDERED: TEMAZEPAM 7.5 MG CAPSULE PO PRN (18:34)
[2020-01-16] MEDS ORDERED: PROMETHAZINE HCL INJ 25 MG/1 ML VIAL IV PRN (18:34)
[2020-01-16] MEDS ORDERED: ONDANSETRON HCL INJ/PF 4 MG/2 ML SDV IV PRN (18:34)
[2020-01-16] MEDS ORDERED: IPRATROPIUM/ALBUTEROL 0.5-2.5 MG/3 ML AMPUL NEB PRN (18:34)
--- NOTE | 2020-01-16 18:42 | PDOC H&P ---
History of Present Illness Admission Date/PCP: 01/16/20 18:13 SUNNY WILLIAMSON MD History of Present Illness: FABIANA MEDRANO is a 34 year old male past medical history of Graves' disease presenting to ED complaining of right lower extremity anterior segura swelling, erythema and pain started 3 days ago. Patient is stating that he hit his leg with another 3 days ago, recently scraped the anterior part of his leg on a platform, noted started swelling and become erythematous starting 12 AM last night, associated with subjective fever and chills. Denies any history of previous cellulitis, MRSA wound infection or IV drug abuse. Denies any headache, shortness of breath, chest pain, nausea, abdominal pain, vomiting, diarrhea, constipation or any urinary symptoms. Past Medical History Endocrine Medical History: Reports: Hypothyroidism Past Surgical History Past Surgical History: Reports: Orthopedic Surgery - right shoulder, surgery for torn labrum, left hand lump removed, R hip Social History Smoking Status: Current Every Day Smoker Electronic Cigarette use?: No Family History Family History: None Parental Family History Reviewed: Yes Children Family History Reviewed: Yes Sibling(s) Family History Reviewed.: Yes Medication/Allergy Home Medications: Ciprofloxacin HCl/Dexameth [Ciprodex Otic Suspension 7.5 ml Bottle] 4 drop LFT_EAR BID #1 bottle 05/16/18 Levothyroxine Sodium [Synthroid 0.15 mg Tablet] 0.15 mg PO DAILY 05/16/18 Methocarbamol [Robaxin 500 mg Tablet] 1,000 mg PO BID PRN #20 tablet 09/24/19 Allergies/Adverse Reactions: No Known Allergies Allergy (Verified 01/16/20 15:26) Review of Systems Review of Systems: as per hpi Physical Exam Vital Signs: Temp Pulse Resp BP Pulse Ox 99.1 F 106 H 18 137/79 H 100 01/16/20 15:10 01/16/20 15:10 01/16/20 15:10 01/16/20 15:10 01/16/20 15:10 Intake & Output 01/15/20 01/16/20 01/17/20 06:59 06:59 06:59 Weight 84.6 kg General appearance: PRESENT: no acute distress, well-developed, well-nourished Head exam: PRESENT: atraumatic, normocephalic Respiratory exam: PRESENT: clear to auscultation octavia. ABSENT: rales, rhonchi, wheezes Cardiovascular exam: PRESENT: RRR. ABSENT: diastolic murmur, rubs, systolic murmur Pulses: PRESENT: normal dorsalis pedis pul GI/Abdominal exam: PRESENT: normal bowel sounds, soft. ABSENT: distended, guarding, mass, organolmegaly, rebound, tenderness Extremities exam: PRESENT: other - Right anterior segura erythema, swelling and tenderness, right mid anterior segura wound 1 x 1 cm, no active discharge. Neurovascularly intact. Neurological exam: PRESENT: alert, awake, oriented to person, oriented to place, oriented to time, oriented to situation, CN II-XII grossly intact. ABSENT: motor sensory deficit Results Laboratory Results: 01/16/20 16:35 01/16/20 16:35 01/16/20 01/16/20 16:35 16:35 WBC 16.9 H RBC 4.17 L Hgb 14.2 Hct 39.9 MCV 96 MCH 34.1 H MCHC 35.6 RDW 13.2 Plt Count 217 Seg Neutrophils % 82.2 H Sodium 136.9 L Potassium 4.1 Chloride 97 L Carbon Dioxide 27 Anion Gap 13 BUN 12 Creatinine 0.69 Est GFR ( Amer) > 60 Glucose 98 Calcium 9.6 Total Bilirubin 0.8 AST 26 Alkaline Phosphatase 68 Total Protein 7.8 Albumin 4.8 Impressions: Tibia/Fibula X-Ray 01/16/20 15:28 IMPRESSION: No acute osseous abnormality of the right tibia and fibula. Assessment and Plan - Diagnosis (1) Cellulitis of right lower leg Is this a current diagnosis for this admission?: Yes Plan: Presented with neutrophilic leukocytosis, tachycardia, fever and chills. Right lower extremity x-ray negative for osteomyelitis. Admit to floor, empiric broad-spectrum IV antibiotic, wound and blood culture. (2) Hx of Graves' disease Is this a current diagnosis for this admission?: Yes Plan: Restart home meds. Outpatient PCP follow-up.
[2020-01-16] MEDS ORDERED: VANCOMYCIN HCL 0 MG in DEXTROSE 5%-WATER 250 ML IV NR (18:45)
[2020-01-16] MEDS: OXYCODONE-ACETAMINOPHEN 5-325 MG TABLET PO PRN (20:02)
[2020-01-16] MEDS: NORMAL SALINE 1000 ML 1,000 ML IV PRN (20:02)
[2020-01-17] MEDS: VANCOMYCIN HCL 1,250 MG in DEXTROSE 5%-WATER 250 ML IV SCH ×2 (02:51→10:32)
[2020-01-17] MEDS: OXYCODONE-ACETAMINOPHEN 5-325 MG TABLET PO PRN ×4 (02:55→22:29)
[2020-01-17] MEDS: ACETAMINOPHEN 325 MG TABLET PO PRN ×2 (05:16→22:29)
[2020-01-17] MEDS: LEVOTHYROXINE SODIUM 0.15 MG TABLET PO SCH ×2 (05:16→06:00)
[2020-01-17] MEDS: PANTOPRAZOLE SODIUM 40 MG TABLET.DR PO SCH ×2 (05:16→17:20)
[2020-01-17 06:37] LABS: ABSOLUTE EOSINOPHILS # (AUTO) 0.1 10^3/uL (0.0-0.6); ABSOLUTE LYMPHOCYTES (AUTO) 1.3 10^3/uL (0.5-4.7); ABSOLUTE MONOCYTES (AUTO) 1.1 10^3/uL (0.1-1.4); ABSOLUTE NEUT (AUTO) 9.7 10^3/uL (1.7-8.2); BASOPHILS % (AUTO) 0.4 % (0-2); EOSINOPHILS % (AUTO) 0.7 % (0-6); HEMATOCRIT 38.4 % (37.9-51.0); HEMOGLOBIN 13.4 g/dL (13.5-17.0); LYMPHOCYTES % (AUTO) 10.7 % (13-45); MEAN CORPUSCULAR HEMOGLOBIN 33.7 pg (27.0-33.4); MEAN CORPUSCULAR HGB CONC 34.8 g/dL (32.0-36.0); MEAN CORPUSCULAR VOLUME 97 fl (80-97); MONOCYTES % (AUTO) 8.8 % (3-13); PLATELET COUNT 165 10^3/uL (150-450); RED BLOOD COUNT 3.97 10^6/uL (4.35-5.55); SEGMENTED NEUTROPHILS % (AUTO) 79.4 % (42-78); TOTAL CELLS COUNTED % (AUTO) 100 %; WHITE BLOOD COUNT 12.3 10^3/uL (4.0-10.5)
[2020-01-17 06:57] LABS: ANION GAP 10 (5-19); BLOOD UREA NITROGEN 7 mg/dL (7-20); CALCIUM 8.9 mg/dL (8.4-10.2); CARBON DIOXIDE 24 mmol/L (22-30); CHLORIDE 102 mmol/L (98-107); GLUCOSE 142 mg/dL (75-110); POTASSIUM 3.8 mmol/L (3.6-5.0)
[2020-01-17] MEDS: NORMAL SALINE 1000 ML 1,000 ML IV PRN (07:59)
[2020-01-17] MEDS ORDERED: ENOXAPARIN SODIUM INJ 40 MG/0.4 ML DISP.SYRIN SUBCUT SCH (10:00)
[2020-01-17] MEDS ORDERED: CEFTRIAXONE 1 GM/D5W RTU 1 GM/50 ML RTUPB IV SCH (10:00)
[2020-01-17] MEDS: METHOCARBAMOL 500 MG TABLET PO SCH ×2 (11:39→17:20)
[2020-01-17 12:17] LABS: URINE AMPHETAMINES SCREEN NEGATIVE; URINE BARBITURATES SCREEN NEGATIVE; URINE BENZODIAZEPINES SCREEN NEGATIVE; URINE COCAINE SCREEN NEGATIVE; URINE MARIJUANA (THC) SCREEN NEGATIVE; URINE METHADONE SCREEN NEGATIVE; URINE PHENCYCLIDINE SCREEN NEGATIVE
--- NOTE | 2020-01-17 12:44 | PDOC PROGRESS REPORT ---
Subjective Progress Note for:: 01/17/20 Subjective:: FABIANA MEDRANO is a 34 year old male past medical history of Graves' disease presenting to ED complaining of right lower extremity anterior segura swelling, erythema and pain started 3 days ago. Patient is stating that he hit his leg with another 3 days ago, recently scraped the anterior part of his leg on a platform, noted started swelling and become erythematous starting 12 AM last night, associated with subjective fever and chills. Denies any history of previous cellulitis, MRSA wound infection or IV drug abuse. Denies any headache, shortness of breath, chest pain, nausea, abdominal pain, vomiting, diarrhea, constipation or any urinary symptoms. 01/17/2020. No acute events overnight. Patient still having persistent right lower extremity below the knee pain and swelling, on physical examination patient has extension of erythema beyond the marker, denies any fever, chills, nausea, vomiting, diarrhea, constipation or any urinary symptoms. Reason For Visit: CELLULITIS Physical Exam Vital Signs: Temp Pulse Resp BP Pulse Ox 97.8 F 85 17 130/79 H 99 01/17/20 11:39 01/17/20 11:39 01/17/20 11:39 01/17/20 11:39 01/17/20 11:39 Intake & Output 01/16/20 01/17/20 01/18/20 06:59 06:59 06:59 Intake Total 1900 412 Output Total 2 Balance 1898 412 Weight 82.8 kg General appearance: PRESENT: no acute distress, well-developed, well-nourished Head exam: PRESENT: atraumatic, normocephalic Respiratory exam: PRESENT: clear to auscultation octavia. ABSENT: rales, rhonchi, wheezes Cardiovascular exam: PRESENT: RRR. ABSENT: diastolic murmur, rubs, systolic murmur GI/Abdominal exam: PRESENT: normal bowel sounds, soft. ABSENT: distended, guarding, mass, organolmegaly, rebound, tenderness Extremities exam: PRESENT: full ROM, other - Right lower extremity anterior segura diffuse erythema, swelling and tenderness, 1.1 cm wound covered with scab. No active discharge. Neurovascularly intact.. ABSENT: calf tenderness, clubbing, pedal edema Results Laboratory Results: 01/17/20 05:48 01/17/20 05:48 01/16/20 01/16/20 01/17/20 16:35 16:35 05:48 WBC 16.9 H 12.3 H RBC 4.17 L 3.97 L Hgb 14.2 13.4 L Hct 39.9 38.4 MCV 96 97 MCH 34.1 H 33.7 H MCHC 35.6 34.8 RDW 13.2 13.0 Plt Count 217 165 Seg Neutrophils % 82.2 H 79.4 H Sodium 136.9 L Potassium 4.1 Chloride 97 L Carbon Dioxide 27 Anion Gap 13 BUN 12 Creatinine 0.69 Est GFR ( Amer) > 60 Glucose 98 Calcium 9.6 Total Bilirubin 0.8 AST 26 Alkaline Phosphatase 68 C-Reactive Protein Total Protein 7.8 Albumin 4.8 01/17/20 01/17/20 05:48 05:48 WBC RBC Hgb Hct MCV MCH MCHC RDW Plt Count Seg Neutrophils % Sodium 135.8 L Potassium 3.8 Chloride 102 Carbon Dioxide 24 Anion Gap 10 BUN 7 Creatinine 0.57 Est GFR ( Amer) > 60 Glucose 142 H Calcium 8.9 Total Bilirubin AST Alkaline Phosphatase C-Reactive Protein 80.9 H Total Protein Albumin Impressions: Tibia/Fibula X-Ray 01/16/20 15:28 IMPRESSION: No acute osseous abnormality of the right tibia and fibula. Assessment and Plan - Diagnosis (1) Cellulitis of right lower leg Is this a current diagnosis for this admission?: Yes Plan: No significant improvement. Worsening erythema. Presented with neutrophilic leukocytosis, tachycardia, fever and chills. Right lower extremity x-ray negative for osteomyelitis. Day 2 IV antibiotics. Day 2 IV vancomycin. Day 2 IV Zosyn. Continue empiric broad-spectrum IV antibiotic. Follow-up wound and blood culture. (2) Hx of Graves' disease Is this a current diagnosis for this admission?: Yes Plan: Restart home meds. Outpatient PCP follow-up.
[2020-01-18 06:26] LABS: ABSOLUTE EOSINOPHILS # (AUTO) 0.3 10^3/uL (0.0-0.6); ABSOLUTE LYMPHOCYTES (AUTO) 1.2 10^3/uL (0.5-4.7); ABSOLUTE MONOCYTES (AUTO) 0.9 10^3/uL (0.1-1.4); ABSOLUTE NEUT (AUTO) 6.2 10^3/uL (1.7-8.2); BASOPHILS % (AUTO) 0.3 % (0-2); EOSINOPHILS % (AUTO) 3.8 % (0-6); HEMATOCRIT 35.8 % (37.9-51.0); LYMPHOCYTES % (AUTO) 14.4 % (13-45); MEAN CORPUSCULAR HEMOGLOBIN 34.7 pg (27.0-33.4); MEAN CORPUSCULAR HGB CONC 36.3 g/dL (32.0-36.0); MEAN CORPUSCULAR VOLUME 96 fl (80-97); MONOCYTES % (AUTO) 10.2 % (3-13); PLATELET COUNT 177 10^3/uL (150-450); RED BLOOD COUNT 3.74 10^6/uL (4.35-5.55); RED CELL DISTRIBUTION WIDTH 12.9 % (11.5-14.0); SEGMENTED NEUTROPHILS % (AUTO) 71.3 % (42-78); TOTAL CELLS COUNTED % (AUTO) 100 %; WHITE BLOOD COUNT 8.7 10^3/uL (4.0-10.5)
[2020-01-18] MEDS: LEVOTHYROXINE SODIUM 0.15 MG TABLET PO SCH (06:34)
[2020-01-18] MEDS: PANTOPRAZOLE SODIUM 40 MG TABLET.DR PO SCH (06:34)
[2020-01-18 06:37] LABS: ANION GAP 6 (5-19); BLOOD UREA NITROGEN 4 mg/dL (7-20); CALCIUM 9.2 mg/dL (8.4-10.2); CARBON DIOXIDE 31 mmol/L (22-30); CHLORIDE 100 mmol/L (98-107); GLUCOSE 96 mg/dL (75-110); POTASSIUM 4.1 mmol/L (3.6-5.0)
[2020-01-18] MEDS: OXYCODONE-ACETAMINOPHEN 5-325 MG TABLET PO PRN (06:56)
[2020-01-18 08:39] VITALS: BP 131/67
--- NOTE | 2020-01-20 18:23 | PDOC DISCHARGE SUMMARY ---
Impression - Admit/DC Date/PCP Admission Date/Primary Care Provider: 01/16/20 18:13 SUNNY WELCH-MD TIANNA Discharge Date: 01/18/20 - Discharge Diagnosis (1) Cellulitis of right lower leg Is this a current diagnosis for this admission?: Yes (2) Hx of Graves' disease Is this a current diagnosis for this admission?: Yes - Additional Information Resuscitation Status: Full Code Discharge Diet: As Tolerated Discharge Activity: Activity As Tolerated Referrals: SUNNY WYNN MD [EMERITUS] - (PATIENT PREFERS TO MAKE OWN APPT.) Prescriptions: Cephalexin [Cephalexin 500 MG Tablet] 500 mg PO Q8 10 Days #30 tablet Home Medications: Levothyroxine Sodium [Synthroid] 175 mcg PO Q6AM 01/16/20 Cephalexin [Cephalexin 500 MG Tablet] 500 mg PO Q8 10 Days #30 tablet 01/18/20 History of Present Illiness History of Present Illness: FABIANA MEDRANO is a 34 year old male past medical history of Graves' disease presenting to ED complaining of right lower extremity anterior segura swelling, erythema and pain started 3 days ago. Patient is stating that he hit his leg with another 3 days ago, recently scraped the anterior part of his leg on a platform, noted started swelling and become erythematous starting 12 AM last night, associated with subjective fever and chills. Denies any history of previous cellulitis, MRSA wound infection or IV drug abuse. Denies any headache, shortness of breath, chest pain, nausea, abdominal pain, vomiting, diarrhea, constipation or any urinary symptoms. Hospital Course Hospital Course: (1) Cellulitis of right lower leg No significant improvement. Worsening erythema. Presented with neutrophilic leukocytosis, tachycardia, fever and chills. Right lower extremity x-ray negative for osteomyelitis. Day 2 IV antibiotics. Day 2 IV vancomycin. Day 2 IV Zosyn. Continue empiric broad-spectrum IV antibiotic. Follow-up wound and blood culture. (2) Hx of Graves' disease Restart home meds. Outpatient PCP follow-up. Physical Exam Vital Signs: Temp Pulse Resp BP Pulse Ox 99.0 F 91 16 131/67 H 98 01/18/20 08:38 01/18/20 08:38 01/18/20 08:38 01/18/20 08:38 01/18/20 08:38 Intake & Output 01/19/20 01/20/20 01/21/20 05:59 06:59 06:59 Weight General appearance: PRESENT: no acute distress, well-developed, well-nourished Head exam: PRESENT: atraumatic, normocephalic Eye exam: PRESENT: conjunctiva pink, EOMI, PERRLA. ABSENT: scleral icterus Ear exam: PRESENT: normal external ear exam Mouth exam: PRESENT: moist, tongue midline Neck exam: ABSENT: carotid bruit, JVD, lymphadenopathy, thyromegaly Respiratory exam: PRESENT: clear to auscultation octavia. ABSENT: rales, rhonchi, wheezes Cardiovascular exam: PRESENT: RRR. ABSENT: diastolic murmur, rubs, systolic murmur Pulses: PRESENT: normal dorsalis pedis pul Vascular exam: PRESENT: normal capillary refill GI/Abdominal exam: PRESENT: normal bowel sounds, soft. ABSENT: distended, guarding, mass, organolmegaly, rebound, tenderness Rectal exam: PRESENT: deferred Extremities exam: PRESENT: full ROM. ABSENT: calf tenderness, clubbing, pedal edema Musculoskeletal exam: PRESENT: tenderness, other - right anterior segura erythema and TTP, about 5/5 cm. moderate improvement since admision. Neurological exam: PRESENT: alert, awake, oriented to person, oriented to place, oriented to time, oriented to situation, CN II-XII grossly intact. ABSENT: motor sensory deficit Psychiatric exam: PRESENT: appropriate affect, normal mood. ABSENT: homicidal ideation, suicidal ideation Skin exam: PRESENT: dry, intact, warm. ABSENT: cyanosis, rash Results Laboratory Results: WBC 8.7 10^3/uL (4.0-10.5) 01/18/20 05:51 RBC 3.74 10^6/uL (4.35-5.55) L 01/18/20 05:51 Hgb 13.0 g/dL (13.5-17.0) L 01/18/20 05:51 Hct 35.8 % (37.9-51.0) L 01/18/20 05:51 MCV 96 fl (80-97) 01/18/20 05:51 MCH 34.7 pg (27.0-33.4) H 01/18/20 05:51 MCHC 36.3 g/dL (32.0-36.0) H 01/18/20 05:51 RDW 12.9 % (11.5-14.0) 01/18/20 05:51 Plt Count 177 10^3/uL (150-450) 01/18/20 05:51 Lymph % (Auto) 14.4 % (13-45) 01/18/20 05:51 [place] % (Auto) 10.2 % (3-13) 01/18/20 05:51 Eos % (Auto) 3.8 % (0-6) 01/18/20 05:51 Baso % (Auto) 0.3 % (0-2) 01/18/20 05:51 Absolute Neuts (auto) 6.2 10^3/uL (1.7-8.2) 01/18/20 05:51 Absolute Lymphs (auto) 1.2 10^3/uL (0.5-4.7) 01/18/20 05:51 Absolute Monos (auto) 0.9 10^3/uL (0.1-1.4) 01/18/20 05:51 Absolute Eos (auto) 0.3 10^3/uL (0.0-0.6) 01/18/20 05:51 Absolute Basos (auto) 0.0 10^3/uL (0.0-0.2) 01/18/20 05:51 Seg Neutrophils % 71.3 % (42-78) 01/18/20 05:51 ESR 23 mm/hr (0-15) H 01/17/20 05:48 Sodium 136.6 mmol/L (137-145) L 01/18/20 05:51 Potassium 4.1 mmol/L (3.6-5.0) 01/18/20 05:51 Chloride 100 mmol/L (98-107) 01/18/20 05:51 Carbon Dioxide 31 mmol/L (22-30) H 01/18/20 05:51 Anion Gap 6 (5-19) 01/18/20 05:51 BUN 4 mg/dL (7-20) L 01/18/20 05:51 Creatinine 0.65 mg/dL (0.52-1.25) 01/18/20 05:51 Est GFR ( Amer) > 60 (>60) 01/18/20 05:51 Est GFR (MDRD) Non-Af > 60 (>60) 01/18/20 05:51 Glucose 96 mg/dL (75-110) 01/18/20 05:51 Calcium 9.2 mg/dL (8.4-10.2) 01/18/20 05:51 Total Bilirubin 0.8 mg/dL (0.2-1.3) 01/16/20 16:35 Direct Bilirubin 0.3 mg/dL (0.0-0.4) 01/16/20 16:35 Neonat Total Bilirubin Not Reportable 01/16/20 16:35 Neonat Direct Bilirubin Not Reportable 01/16/20 16:35 Neonat Indirect Bili Not Reportable 01/16/20 16:35 AST 26 U/L (17-59) 01/16/20 16:35 ALT 13 U/L (<50) 01/16/20 16:35 Alkaline Phosphatase 68 U/L (38-126) 01/16/20 16:35 C-Reactive Protein 80.9 mg/L (<10.0) H 01/17/20 05:48 Total Protein 7.8 g/dL (6.3-8.2) 01/16/20 16:35 Albumin 4.8 g/dL (3.5-5.0) 01/16/20 16:35 Urine Opiates Screen NEGATIVE 01/17/20 11:41 Urine Methadone Screen NEGATIVE 01/17/20 11:41 Ur Barbiturates Screen NEGATIVE 01/17/20 11:41 Ur Phencyclidine Scrn NEGATIVE 01/17/20 11:41 Ur Amphetamines Screen NEGATIVE 01/17/20 11:41 U Benzodiazepines Scrn NEGATIVE 01/17/20 11:41 Urine Cocaine Screen NEGATIVE 01/17/20 11:41 U Marijuana (THC) Screen NEGATIVE 01/17/20 11:41 Impressions: Tibia/Fibula X-Ray 01/16/20 15:28 IMPRESSION: No acute osseous abnormality of the right tibia and fibula. Stroke Is this a Stroke Patient?: No Acute Heart Failure - Is this a Heart Failure Patient?: No
== END 2020-01-18 09:09 | disposition home or self-care (01) ==
LOC: ER 14:10 → INTOOBSV 18:13 → EH 18:13 → 5 19:40
PROVIDERS: ADMIT Internal Medicine; ATTEND Internal Medicine
DX: L03.115 Cellulitis of right lower limb (principal); E05.00 Thyrotoxicosis with diffuse goiter without thyrotoxic crisis or storm; R00.0 Tachycardia, unspecified; Z23 Encounter for immunization; F17.200 Nicotine dependence, unspecified, uncomplicated; Z79.899 Other long term (current) drug therapy
CPT/HCPCS: 99284; 36415 ×3; 87040; 87070; 87205; 85025 ×3; 85652; 86140; 87077; 80048 ×2; 80053; 80307; 73590; 90715; G0378 ×4; J2270; J1650; J7060; J7030 ×2; J3370 ×2; J0696 ×2; J3490

== ENCOUNTER 2020-01-23 11:29 | Emergency (ER) | payer SELFPAY ==
--- NOTE | 2020-01-23 12:30 | ER Document Report ---
ED Medical Screen (RME) - General Chief Complaint: Abscess Stated Complaint: ABSCESS/RIGHT LEG Time Seen by Provider: 01/23/20 12:25 Primary Care Provider: SUNNY WILLIAMSON MD [Primary Care Provider] - Follow up as needed Mode of Arrival: Ambulatory Information source: Patient Notes: 34-year-old male with an abscess to his right lower leg anterior segura presents to the emergency department with reports that Dr. Jarvis sent him back here for admission. Patient reports he was admitted for this last week. He never had it drained. He reports temperature 102.[address] Patient reports that Dr[address] Jarvis contacted somebody at [facility] who said they would come and drain it here. Patient reports the redness seems to be getting little bit better but the swelling is the same. I have greeted and performed a rapid initial assessment of this patient. A comprehensive ED assessment and evaluation of the patient, analysis of test results and completion of the medical decision making process will be conducted by additional ED providers. TRAVEL OUTSIDE OF THE [place] IN LAST 30 DAYS: Yes - Related Data Allergies/Adverse Reactions: No Known Allergies Allergy (Verified 01/16/20 15:26) Past Medical History - Social History Family history: None Endocrine Medical History: Reports: Hx Hypothyroidism Renal/ Medical History: Denies: Hx Peritoneal Dialysis Musculoskeltal Medical History: Reports Hx Musculoskeletal Deformity, Reports Hx Musculoskeletal Trauma - Torn right labrum Past Surgical History: Reports: Hx Orthopedic Surgery - right shoulder, surgery for torn labrum, left hand lump removed, R hip - Immunizations Immunizations up to date: Yes Hx Diphtheria, Pertussis, Tetanus Vaccination: No Physical Exam - Vital signs Vitals: Temp Pulse Resp BP Pulse Ox 98.5 F 80 16 138/79 H 97 01/23/20 12:03 01/23/20 12:03 01/23/20 12:03 01/23/20 12:03 01/23/20 12:03 Course - Vital Signs Vital signs: Temp Pulse Resp BP Pulse Ox 98.5 F 80 16 138/79 H 97 01/23/20 12:03 01/23/20 12:03 01/23/20 12:03 01/23/20 12:03 01/23/20 12:03 Doctor's Discharge - Discharge Referrals: SUNNY WILLIAMSON MD [Primary Care Provider] - Follow up as needed
[2020-01-23 12:57] LABS: ABSOLUTE BASOPHILS # (AUTO) 0.1 10^3/uL (0.0-0.2); ABSOLUTE EOSINOPHILS # (AUTO) 0.4 10^3/uL (0.0-0.6); ABSOLUTE LYMPHOCYTES (AUTO) 1.6 10^3/uL (0.5-4.7); ABSOLUTE MONOCYTES (AUTO) 0.4 10^3/uL (0.1-1.4); ABSOLUTE NEUT (AUTO) 3.2 10^3/uL (1.7-8.2); EOSINOPHILS % (AUTO) 6.3 % (0-6); HEMATOCRIT 39.2 % (37.9-51.0); HEMOGLOBIN 13.6 g/dL (13.5-17.0); LYMPHOCYTES % (AUTO) 27.6 % (13-45); MEAN CORPUSCULAR HEMOGLOBIN 33.6 pg (27.0-33.4); MEAN CORPUSCULAR HGB CONC 34.8 g/dL (32.0-36.0); MEAN CORPUSCULAR VOLUME 97 fl (80-97); MONOCYTES % (AUTO) 7.8 % (3-13); PLATELET COUNT 338 10^3/uL (150-450); RED BLOOD COUNT 4.06 10^6/uL (4.35-5.55); SEGMENTED NEUTROPHILS % (AUTO) 57.3 % (42-78); TOTAL CELLS COUNTED % (AUTO) 100 %; WHITE BLOOD COUNT 5.7 10^3/uL (4.0-10.5)
--- NOTE | 2020-01-23 13:13 | RADIOLOGY REPORT (SQ) ---
EXAM DESCRIPTION: TIBIA FIBULA RIGHT COMPLETED DATE/TIME: 01/23/2020 1:02 pm REASON FOR STUDY: RLL pain, abscess COMPARISON: 01/16/2020 NUMBER OF VIEWS: Two views. TECHNIQUE: Two radiographic images acquired of the right tibia and fibula to include the knee and an kle in at least one projection. LIMITATIONS: None. FINDINGS: MINERALIZATION: Normal. BONES: No acute fracture or dislocation. No worrisome bone lesions. SOFT TISSUES: No obvious swelling or foreign body. OTHER: No other significant finding. IMPRESSION: NEGATIVE STUDY OF THE RIGHT TIBIA AND FIBULA. NO RADIOGRAPHIC EVIDENCE OF ACUTE INJURY. TECHNICAL DOCUMENTATION: JOB ID: [id number] 2010 [employer]- All Rights Reserved Reading location - IP/workstation name: [email or web address]
[2020-01-23 13:17] LABS: ALBUMIN 4.5 g/dL (3.5-5.0); ALKALINE PHOSPHATASE 60 U/L (38-126); ANION GAP 13 (5-19); ASPARTATE AMINO TRANSFERASE 21 U/L (17-59); BILIRUBIN,TOTAL 0.4 mg/dL (0.2-1.3); BLOOD UREA NITROGEN 9 mg/dL (7-20); CALCIUM 9.6 mg/dL (8.4-10.2); CARBON DIOXIDE 26 mmol/L (22-30); CHLORIDE 96 mmol/L (98-107); GLUCOSE 114 mg/dL (75-110); POTASSIUM 4.1 mmol/L (3.6-5.0); TOTAL PROTEIN 7.5 g/dL (6.3-8.2)
[2020-01-23] MEDS ORDERED: LEVOFLOXACIN 750 MG TABLET PO ONE (14:05)
--- NOTE | 2020-01-23 14:14 | ER Document Report ---
ED General - General Chief Complaint: Wound Recheck Stated Complaint: ABSCESS/RIGHT LEG Time Seen by Provider: 01/23/20 12:25 Primary Care Provider: SUNNY WILLIAMSON MD [Primary Care Provider] - Follow up as needed Mode of Arrival: Ambulatory TRAVEL OUTSIDE OF THE [place] IN LAST 30 DAYS: Yes - HPI Notes: Mr. Main is a 34-year-old male with past medical history of Graves' disease who sent to the ED by his family doctor for reevaluation of Rt lower extremity cellulitis. He states that he hit his Rt segura with an auger 2 weeks ago and was admitted to the hospital on January 15 for cellulitis. He was discharged on 01/19. He states he received IV antibiotics and was discharged home with p.o. Keflex. Since that time he has noticed significant improvement in his swelling, pain, and erythema. However, he states that he bumped his Rt leg Tues day when he was at home with resulting increase in pain and swelling. Additionally he notes that he had an axilla temperature of 102 later that night. He presents today stating that his wound is significantly improved since onset, but that he was instructed by his family doctor today to have his leg evaluated for potential I&D. Currently he states his Rt leg feels cool, and endorses Rt leg pain, shortness of breath, and leg, but denies any fevers or chills. Denies any head injury, neck pain, URI, sore throat, chest pain, palpitations, syncope, cough, wheeze, dyspnea, abdominal pain, nausea/vomiting/diarrhea, urinary retention, dysuria, hematuria, loss of control of bowel or bladder, sadd le anesthesia, or muscle paralysis/weakness. - Related Data Allergies/Adverse Reactions: No Known Allergies Allergy (Verified 01/16/20 15:26) Past Medical History - General Information source: Patient - Social History Smoking Status: Current Every Day Smoker Chew tobacco use (# tins/day): No Frequency of alcohol use: Occasional Drug Abuse: None Family History: None Patient has suicidal ideation: No Patient has homicidal ideation: No Endocrine Medical History: Reports: Hx Hypothyroidism Renal/ Medical History: Denies: Hx Peritoneal Dialysis Musculoskeletal Medical History: Reports Hx Musculoskeletal Deformity, Reports Hx Musculoskeletal Trauma - Torn right labrum Past Surgical History: Reports: Hx Orthopedic Surgery - right shoulder, surgery for torn labrum, left hand lump removed, R hip - Immunizations Immunizations up to date: Yes Hx Diphtheria, Pertussis, Tetanus Vaccination: No Review of Systems - Review of Systems -: Yes All other systems reviewed and negative Physical Exam - Vital signs Vitals: Temp Pulse Resp BP Pulse Ox 98.5 F 80 16 138/79 H 97 01/23/20 12:03 01/23/20 12:03 01/23/20 12:03 01/23/20 12:03 01/23/20 12:03 - Notes Notes: PHYSICAL EXAMINATION: GENERAL: Well-appearing, well-nourished and in no acute distress. LUNGS: Breath sounds clear to auscultation bilaterally and equal. No wheezes rales or rhonchi. HEART: Regular rate and rhythm without murmurs, rubs, gallops. ABDOMEN: Soft, nontender, nondistended abdomen. No guarding, no rebound. Normal bowel sounds present. No CVA tenderness bilaterally. Musculoskeletal: Rt LE: FROM to passive/active. Strength 5+/5. N/V intact distal. There is remaining mild cellulitis to the mid anterior lower leg w/o any fluctuance, streaks, purulence, or significant induration noted. He does have trace pitting edema and tenderness. Extremities: No cyanosis, clubbing, or edema b/l. Peripheral pulses 2+. Capillary refill less than 3 seconds. NEUROLOGICAL: Normal speech, normal gait. Normal sensory, motor exams PSYCH: Normal mood, normal affect. SKIN: see above Course - Re-evaluation Re-evalutation: 01/23/20 14:[address] Zayas who saw this patient initially with me upon admission who agrees that no I&D is warranted at this time. There is no fluctuance or abscess noted. Recommends one dose of levaquin here and add bactrim to his regimen for home once venous doppler is complete. 01/23/20 14:58 Patient is an afebrile, well-hydrated, 34-year-old male who presents with resolving/improving cellulitis of his right lower leg. Vitals are acceptable le ssening tachycardia, tachypnea, hypoxia. PE is otherwise unremarkable. Patient is nontoxic-appearing and is tolerating p.o. without difficulty. Evaluation is significantly improved from when I initially saw him about a week ago. There is no evidence of fluctuance or abscess requiring incision and drainage at this time. Venous Doppler was negative. Labs and imaging otherwise unremarkable. No further work-up warranted. Low suspicion for any sepsis or other systemic emergent condition at this time. Patient does not meet admission criteria. He is to recheck with his PCM this week. Return to the ED with any other worsening/concerning symptoms. Patient is in agreement. - Vital Signs Vital signs: Temp Pulse Resp BP Pulse Ox 98.5 F 80 16 138/79 H 97 01/23/20 12:03 01/23/20 12:03 01/23/20 12:03 01/23/20 12:03 01/23/20 12:03 - Laboratory Result Diagrams: 01/23/20 12:35 01/23/20 12:35 Laboratory results interpreted by me: 01/23/20 01/23/20 12:35 12:35 RBC 4.06 L MCH 33.6 H Eos % (Auto) 6.3 H Sodium 135.0 L Chloride 96 L Glucose 114 H Discharge - Discharge Clinical Impression: Cellulitis of right lower leg Condition: Stable Disposition: HOME, SELF-CARE Additional Instructions: Keep the skin clean Wash with soap and water Tylenol/ibuprofen if needed Triple antibiotic ointment daily Take medication as directed Monitor for any worsening symptoms Recheck with your PCM in 3-5 days Consider consult with General Surgeon for ongoing/worsening symptoms Return to the ED with any worsening symptoms and/or development of fever, headache, chest pain, palpitations, syncope, shortness of breath, trouble breathing, abdominal pain, n/v/d, abscess, purulent discharge, red streaks, worsening swelling, or other worsening symptoms that are concerning to you. Prescriptions: Sulfamethoxazole/Trimethoprim [Bactrim Ds Tablet] 1 each PO BID #20 tablet Forms: Elevated Blood Pressure, Smoking Cessation Education Referrals: SUNNY WILLIAMSON MD [Primary Care Provider] - Follow up as needed LATHA HINKLE MD [ACTIVE STAFF] - Follow up as needed
[2020-01-23 15:18] VITALS: BP 141/81
--- NOTE | 2020-01-23 15:35 | RADIOLOGY REPORT (SQ) ---
EXAM DESCRIPTION: VENOUS UNILATERAL LOWER COMPLETED DATE/TIME: 01/23/2020 3:24 pm REASON FOR STUDY: RLE edema, please spot check arteries COMPARISON: 12/12/2018 TECHNIQUE: Dynamic and static archuleta scale and color images acquired of the right leg venous system. S elected spectral images acquired with additional compression and augmentation maneuvers. The contrala teral common femoral vein and saphenofemoral junction were also imaged. Images stored on PACS. LIMITATIONS: None. FINDINGS: COMMON FEMORAL: Normal phasicity, compression and augmentation. No visualized echogenic ma terial on archuleta scale. No defects on color images. FEMORAL: Normal compression and augmentation. No visualized echogenic material on archuleta scale. No defe cts on color images. POPLITEAL: Normal compression, augmentation. No visualized echogenic material on archuleta scale. No defec ts on color images. CALF VESSELS: Normal compression, augmentation. No visualized echogenic material on archuleta scale. No de fects on color images. GSV and SSV: Normal compression, augmentation. No visualized echogenic material on archuleta scale. No def ects on color images. ANY DEEP VENOUS INSUFFICIENCY: Not evaluated. ANY EVIDENCE OF POPLITEAL CYST: No. OTHER: Limited spots checks of the infrapopliteal are chills structures demonstrates multiphasic wave forms in the posterior tibial artery and dorsalis pedis artery. CONTRALATERAL COMMON FEMORAL VEIN AND SAPHENOFEMORAL JUNCTION: Normal phasicity, compression and augmentation. No visualized echogenic material on archuleta scale. No de fects on color images. IMPRESSION: NO EVIDENCE DVT OR SVT IN THE RIGHT LEG. TECHNICAL DOCUMENTATION: JOB ID: [id number] 2010 [employer]- All Rights Reserved Reading location - IP/workstation name: [email or web address]
== END 2020-01-23 15:17 | disposition home or self-care (01) ==
LOC: ER 11:29
DX: L03.115 Cellulitis of right lower limb (principal); R50.9 Fever, unspecified; F17.200 Nicotine dependence, unspecified, uncomplicated; E03.9 Hypothyroidism, unspecified
CPT/HCPCS: 36415; 80053; 85025; 87040; 93971; 99284

== ENCOUNTER 2020-01-24 16:09 | Day surgery (SDC) | payer SELFPAY ==
[~2020-01-24 16:09] MED LIST changes: +RINGERS SOLUTION,LACTATED 1,000 ML IV PRN
[2020-01-24] MEDS ORDERED: FENTANYL CITRATE INJ/PF 100 MCG/2 ML AMPUL ONE (16:22)
[2020-01-24] MEDS ORDERED: MIDAZOLAM 2 MG/2 ML INJ ONE (16:23)
[2020-01-24] MEDS ORDERED: PROPOFOL INJ 200 MG/20 ML VIAL IV ONE ×2 (16:23→16:25)
[2020-01-24] MEDS ORDERED: CEFAZOLIN INJ 1 GM VIAL ONE (16:58)
[2020-01-24] MEDS ORDERED: MORPHINE SULFATE 10 MG/ML INJ IV PRN (17:30)
[2020-01-24] MEDS ORDERED: PROMETHAZINE HCL INJ 25 MG/1 ML VIAL IV PRN ×2 (17:30)
[2020-01-24] MEDS ORDERED: MEPERIDINE HCL/PF INJ 25 MG/1 ML DISP.SYRIN IV PRN (17:30)
[2020-01-24] MEDS ORDERED: FENTANYL CITRATE INJ/PF 100 MCG/2 ML AMPUL IV PRN ×3 (17:30)
[2020-01-24] MEDS ORDERED: DIPHENHYDRAMINE HCL 50 MG/ML VIAL IV PRN (17:30)
[2020-01-24] MEDS: MORPHINE SULFATE 10 MG/ML INJ ONE ×2 (17:38→17:43)
--- NOTE | 2020-01-24 17:38 | Operative Report ---
Operative Report DATE OF SURGERY: 01/24/20 PREOPERATIVE DIAGNOSIS: Abscess right lower extremity pretibial POSTOPERATIVE DIAGNOSIS: Same OPERATION: Excisional debridement of right lower extremity abscess, down to the fascia, wound evacuation and packing SURGEON: JAYE ZIMMERMAN ANESTHESIA: LMAC TISSUE REMOVED OR ALTERED: Nonviable skin and subcutaneous tissue COMPLICATIONS: None ESTIMATED BLOOD LOSS: Scattered INTRAOPERATIVE FINDINGS: See below PROCEDURE: Patient was seen in the preop holding area the right leg was marked. Is then taken to main operating where LMAC anesthesia was induced. Right leg was exposed, prepped and draped sterile fashion Surgical plan and surgical timeout were conducted. The abscess over the mid anterior tibia was anesthetized with 1% plain lidocaine. An elliptical incision approximately 2 x 2 and half centimeters was made over the abscess encompassing the skin, and subcutaneous tissue down to the pretibial fascia. The surrounding skin was elevated with hemostats, and necrotic fat broken up and debrided. Wound culture sent for Gram stain culture and sensitivity. All nonviable fat was debrided. Wound irrigated with a liter saline and wound packed with iodoform packing. Patient tolerated procedure well, taken recovery room in stable condition. Plan: 1. Patient to be discharged home on dressing changes 2. Patient will follow-up with [facility] in 1 week. 3. Patient will be instructed on local wound care.
--- NOTE | 2020-01-24 17:44 | PDOC DISCHARGE SUMMARY ---
General - Admit/Disc Date/PCP Admission Date/Primary Care Provider: 01/24/20 14:16 SUNNY WILLIAMSON MD Discharge Date: 01/24/20 - Discharge Diagnosis Final Diagnosis: Abscess right lower extremity - Assessment Summary: Patient is a 34-year-old male with a several week history of post traumatic wound right pretibial region. Patient multiple courses of p.o. antibiotics without resolution. He presented to the [facility] today with pus draining from his pretibial wound. Brought on some more hospital for drainage. Patient underwent incision and drainage and packing of the wound Dr. Rodríguez on the afternoon of 01/24/2020. Patient will be discharged home dressing changes, and we will call him with the results of his wound cultures. - Additional Information Resuscitation Status: Full Code Discharge Activity: Activity As Tolerated - Discharge patient home; supply patient with quarter inch iodoform packing; instruct patient to remove packing in shower wash wound completely naked; repacked with small piece of iodoform packing. Patient follow-up with [facility] in 1 week Referrals: SUNNY WILLIAMSON MD [Primary Care Provider] - Home Medications: Levothyroxine Sodium [Synthroid] 175 mcg PO Q6AM 01/16/20 Cephalexin [Cephalexin 500 MG Tablet] 500 mg PO Q8 10 Days #30 tablet 01/18/20 Sulfamethoxazole/Trimethoprim [Bactrim Ds Tablet] 1 each PO BID #20 tablet 01/23/20 History of Present Illiness History of Present Illness: FABIANA MEDRANO is a 34 year old male
[2020-01-24 18:49] VITALS: BP 133/83
[2020-01-24] MEDS ORDERED: CEFAZOLIN SODIUM 2 GM in DEXTROSE 5%-WATER 100 ML IV SCH (22:00)
== END 2020-01-24 19:58 | disposition home or self-care (01) ==
LOC: OROUT 16:09 → UNDODISOB 19:58 → EDSTATUS 02-12 10:23
PROVIDERS: ATTEND Surgery
DX: L02.415 Cutaneous abscess of right lower limb (principal); S81.801S Unspecified open wound, right lower leg, sequela; W22.8XXS Striking against or struck by other objects, sequela; Z01.818 Encounter for other preprocedural examination; E05.00 Thyrotoxicosis with diffuse goiter without thyrotoxic crisis or storm; F17.200 Nicotine dependence, unspecified, uncomplicated; R50.9 Fever, unspecified; R00.0 Tachycardia, unspecified; Z79.899 Other long term (current) drug therapy
CPT/HCPCS: 11043; 87070; 87205; 87075; 01470; A6266; J2250; J0690; J3010; J3490; J2270; J7120; J2704; 1470

== ENCOUNTER → 2020-02-06 | Outpatient (CLI) | payer MEDICAID ==
--- NOTE | 2020-02-06 16:33 | RADIOLOGY REPORT (SQ) ---
EXAM DESCRIPTION: CHEST PA/LATERAL COMPLETED DATE/TIME: 02/06/2020 4:17 pm REASON FOR STUDY: FEVER;COUGH COMPARISON: None. EXAM PARAMETERS: NUMBER OF VIEWS: two views TECHNIQUE: Digital Frontal and Lateral radiographic views of the chest acquired. RADIATION DOSE: NA LIMITATIONS: none FINDINGS: LUNGS AND PLEURA: No opacities, masses or pneumothorax. No pleural effusion. MEDIASTINUM AND HILAR STRUCTURES: No masses or contour abnormalities. HEART AND VASCULAR STRUCTURES: Heart normal size. No evidence for failure. BONES: No acute findings. HARDWARE: None in the chest. OTHER: No other significant finding. IMPRESSION: NO SIGNIFICANT RADIOGRAPHIC FINDING IN THE CHEST. TECHNICAL DOCUMENTATION: JOB ID: [id number] 2010 [employer]- All Rights Reserved Reading location - IP/workstation name: [email or web address]
[2020-02-06 17:15] LABS: HEMATOCRIT 38.7 % (37.9-51.0); HEMOGLOBIN 13.7 g/dL (13.5-17.0); MEAN CORPUSCULAR HEMOGLOBIN 32.8 pg (27.0-33.4); MEAN CORPUSCULAR HGB CONC 35.3 g/dL (32.0-36.0); RED BLOOD COUNT 4.17 10^6/uL (4.35-5.55); RED CELL DISTRIBUTION WIDTH 12.8 % (11.5-14.0); WHITE BLOOD COUNT 4.1 10^3/uL (4.0-10.5)
[2020-02-06 17:29] LABS: ALBUMIN 4.1 g/dL (3.5-5.0); ALKALINE PHOSPHATASE 188 U/L (38-126); ANION GAP 9 (5-19); ASPARTATE AMINO TRANSFERASE 176 U/L (17-59); BILIRUBIN,DIRECT 0.4 mg/dL (0.0-0.4); BILIRUBIN,TOTAL 0.8 mg/dL (0.2-1.3); BLOOD UREA NITROGEN 10 mg/dL (7-20); CALCIUM 9.1 mg/dL (8.4-10.2); CARBON DIOXIDE 28 mmol/L (22-30); CHLORIDE 92 mmol/L (98-107); GLUCOSE 91 mg/dL (75-110); POTASSIUM 4.6 mmol/L (3.6-5.0); TOTAL PROTEIN 7.2 g/dL (6.3-8.2)
[2020-02-06 17:41] LABS: MEAN CORPUSCULAR VOLUME 93 fl (80-97)
[2020-02-06 17:42] LABS: PLATELET COUNT 83 10^3/uL (150-450)
[2020-02-06 17:45] LABS: ABSOLUTE LYMPHOCYTES# (MANUAL) 0.9 10^3/uL (0.5-4.7); ABSOLUTE MONOCYTES # (MANUAL) 0.6 10^3/uL (0.1-1.4); BAND NEUTROPHILS % (MANUAL) 1 % (3-5); BASOPHILS % (MANUAL) 0 % (0-2); EOSINOPHILS % (MANUAL) 0 % (0-6); LYMPHOCYTES % (MANUAL) 22 % (13-45); MONOCYTES % (MANUAL) 14 % (3-13); SEGMENTED NEUTROPHILS % (MAN) 63 % (42-78); TOTAL CELLS COUNTED 100
[2020-02-06 17:47] LABS: PLATELET COMMENT DECREASED; RBC MORPHOLOGY COMMENT NORMO-CYTIC/CHROMIC
[2020-02-07 14:14] LABS: APPEARANCE,URINE CLEAR; BILIRUBIN,URINE NEGATIVE (NEGATIVE); COLOR,URINE YELLOW; GLUCOSE, URINE NEGATIVE (NEGATIVE); KETONES,URINE NEGATIVE (NEGATIVE); LEUKOCYTE ESTERASE,URINE NEGATIVE (NEGATIVE); NITRITE,URINE NEGATIVE (NEGATIVE); PROTEIN,URINE NEGATIVE (NEGATIVE); URINE SPECIFIC GRAVITY 1.006
== END ==
LOC: OD 15:55
PROVIDERS: ATTEND Internal Medicine
DX: J20.9 Acute bronchitis, unspecified (principal); R50.9 Fever, unspecified; R05 Cough; Z79.899 Other long term (current) drug therapy
CPT/HCPCS: 36415; 71046; 80053; 81001; 85025

== ENCOUNTER → 2020-02-12 | Outpatient (CLI) | payer SELFPAY ==
[2020-02-12 16:04] LABS: ABSOLUTE EOSINOPHILS # (AUTO) 0.2 10^3/uL (0.0-0.6); ABSOLUTE LYMPHOCYTES (AUTO) 4.4 10^3/uL (0.5-4.7); ABSOLUTE MONOCYTES (AUTO) 0.9 10^3/uL (0.1-1.4); ABSOLUTE NEUT (AUTO) 5.5 10^3/uL (1.7-8.2); BASOPHILS % (AUTO) 0.2 % (0-2); HEMATOCRIT 36.3 % (37.9-51.0); HEMOGLOBIN 12.7 g/dL (13.5-17.0); LYMPHOCYTES % (AUTO) 39.5 % (13-45); MEAN CORPUSCULAR HEMOGLOBIN 32.8 pg (27.0-33.4); MEAN CORPUSCULAR VOLUME 94 fl (80-97); MONOCYTES % (AUTO) 8.3 % (3-13); PLATELET COUNT 344 10^3/uL (150-450); RED BLOOD COUNT 3.88 10^6/uL (4.35-5.55); RED CELL DISTRIBUTION WIDTH 13.3 % (11.5-14.0); TOTAL CELLS COUNTED % (AUTO) 100 %; WHITE BLOOD COUNT 11.1 10^3/uL (4.0-10.5)
[2020-02-12 16:24] LABS: ALBUMIN 4.3 g/dL (3.5-5.0); ALKALINE PHOSPHATASE 114 U/L (38-126); ANION GAP 7 (5-19); ASPARTATE AMINO TRANSFERASE 54 U/L (17-59); BILIRUBIN,DIRECT 0.2 mg/dL (0.0-0.4); BILIRUBIN,TOTAL 0.4 mg/dL (0.2-1.3); BLOOD UREA NITROGEN 10 mg/dL (7-20); CALCIUM 9.1 mg/dL (8.4-10.2); CARBON DIOXIDE 31 mmol/L (22-30); CHLORIDE 97 mmol/L (98-107); GLUCOSE 95 mg/dL (75-110); POTASSIUM 4.5 mmol/L (3.6-5.0); TOTAL PROTEIN 7.7 g/dL (6.3-8.2)
== END ==
LOC: OD 15:31
PROVIDERS: ATTEND Internal Medicine
DX: R74.8 Abnormal levels of other serum enzymes (principal); R10.11 Right upper quadrant pain; R59.9 Enlarged lymph nodes, unspecified
CPT/HCPCS: 36415; 80053; 85025

== ENCOUNTER 2020-02-20 13:28 | Emergency (ER) | payer SELFPAY ==
--- NOTE | 2020-02-20 14:04 | RADIOLOGY REPORT (SQ) ---
EXAM DESCRIPTION: CHEST SINGLE VIEW IMAGES COMPLETED DATE/TIME: 02/20/2020 1:57 pm REASON FOR STUDY: bed 15 cp COMPARISON: 02/06/2020 EXAM PARAMETERS: NUMBER OF VIEWS: One view. TECHNIQUE: Single frontal radiographic view of the chest acquired. RADIATION DOSE: NA LIMITATIONS: None. FINDINGS: LUNGS AND PLEURA: No opacities, masses or pneumothorax. No pleural effusion. MEDIASTINUM AND HILAR STRUCTURES: No masses. Contour normal. HEART AND VASCULAR STRUCTURES: Heart normal in size. Normal vasculature. BONES: No acute findings. HARDWARE: None in the chest. OTHER: No other significant finding. IMPRESSION: NO ACUTE RADIOGRAPHIC FINDING IN THE CHEST. TECHNICAL DOCUMENTATION: JOB ID: [id number] 2010 [employer]- All Rights Reserved Reading location - IP/workstation name: [email or web address]
[2020-02-20 14:57] LABS: ABSOLUTE LYMPHOCYTES (AUTO) 1.5 10^3/uL (0.5-4.7); ABSOLUTE MONOCYTES (AUTO) 0.5 10^3/uL (0.1-1.4); ABSOLUTE NEUT (AUTO) 4.5 10^3/uL (1.7-8.2); BASOPHILS % (AUTO) 0.7 % (0-2); EOSINOPHILS % (AUTO) 0.6 % (0-6); HEMATOCRIT 33.6 % (37.9-51.0); HEMOGLOBIN 12.1 g/dL (13.5-17.0); LYMPHOCYTES % (AUTO) 22.5 % (13-45); MEAN CORPUSCULAR HGB CONC 35.9 g/dL (32.0-36.0); MEAN CORPUSCULAR VOLUME 92 fl (80-97); MONOCYTES % (AUTO) 7.3 % (3-13); PLATELET COUNT 338 10^3/uL (150-450); RED BLOOD COUNT 3.66 10^6/uL (4.35-5.55); RED CELL DISTRIBUTION WIDTH 13.2 % (11.5-14.0); SEGMENTED NEUTROPHILS % (AUTO) 68.9 % (42-78); TOTAL CELLS COUNTED % (AUTO) 100 %; WHITE BLOOD COUNT 6.6 10^3/uL (4.0-10.5)
--- NOTE | 2020-02-20 14:58 | ER Document Report ---
ED General - General Chief Complaint: Chest Pain Stated Complaint: CHEST PAIN/DIZZINESS Time Seen by Provider: 02/20/20 13:34 Primary Care Provider: SUNNY WYNN MD [Primary Care Provider] - Follow up as needed Notes: 34-year-old male arrives with acute onset just prior to arrival of left-sided chest pain referred to his upper back and into his left shoulder axillary area and a stabbing quality. Patient reports a 6 out of 10 pain. He has never had this before. 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 Patient reports his paternal grandfathers had 5 MRIs and mother side of family is unknown. Paternal grandmother from [place]. Father has hypertension and takes medicine for this. At 1430 patient advises he no longer has any pain in his left chest or left axillary area. His EKG was significant for 96 bpm with sinus rhythm no ST elevation no ST depression. P atient denies any cocaine or illegal drugs. He does admit to smoking half pack per day since he was a teenager. He has been drinking beer on and off and also advises this morning had a mixed drink because he has been off work because of the coronavirus outbreak scare throughout this nation. 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 He has been on Synthroid ever since. I advised him that this takes care of the thyroid but not the underlying immune system that has caused his thyroid condition to begin with LUTS he is to advise his insurance checker about PMR and polymyalgia rheumatica type symptoms in the future. Or other autoimmune type conditions. He also has had a problem with an infection in his right segura and that 1 month ago had an incision and drainage he continues to pack this wound. TRAVEL OUTSIDE OF THE [place] IN LAST 30 DAYS: No - Related Data Allergies/Adverse Reactions: No Known Allergies Allergy (Verified 01/16/20 15:26) Home Medications: Levothyroxine Past Medical History - General Information source: Patient - Social History Smoking Status: Current Every Day Smoker Cigarette use (# per day): Yes Chew tobacco use (# tins/day): No Smoking Education Provided: Yes Frequency of alcohol use: Occasional Drug Abuse: None Lives with: Family Family History: Hypertension, Other - Heart attacks [place] Patient has suicidal ideation: No Patient has homicidal ideation: No Endocrine Medical History: Reports: Hx Hypothyroidism Renal/ Medical History: Denies: Hx Peritoneal Dialysis Musculoskeletal Medical History: Reports Hx Musculoskeletal Deformity, Reports Hx Musculoskeletal Trauma - Torn right labrum Past Surgical History: Reports: Hx Orthopedic Surgery - right shoulder, surgery for torn labrum, left hand lump removed, R hip - Immunizations Immunizations up to date: Yes Hx Diphtheria, Pertussis, Tetanus Vaccination: No Review of Systems - Review of Systems Constitutional: No symptoms reported, Weakness EENT: No symptoms reported Cardiovascular: No symptoms reported, See HPI, Chest pain, Lightheaded Respiratory: See HPI, Short of breath Gastrointestinal: No symptoms reported Genitourinary: No symptoms reported Male Genitourinary: No symptoms reported Musculoskeletal: No symptoms reported Skin: No symptoms reported Hematologic/Lymphatic: No symptoms reported Neurological/Psychological: No symptoms reported Physical Exam - Vital signs Vitals: Pulse Ox 98 02/20/20 13:30 Interpretation: Normal - General General appearance: Appears well, Alert - HEENT Head: Normocephalic Eyes: Normal Conjunctiva: Normal Cornea: Normal Extraocular movements intact: Yes Eyelashes: Normal Pupils: PERRL - Is a really really anxious Sinus: Normal - He quit he was already on Suboxone and was taking gabapentin but entire bottle will write that down axis we appreciate is that we will try to call is being worked up. He is Nasal: Normal Mouth/Lips: Normal Mucous membranes: Normal Pharynx: Normal Neck: Normal - Respiratory Respiratory status: No respiratory distress Chest status: Nontender Breath sounds: Normal Chest palpation: Normal - Cardiovascular Rhythm: Regular Heart sounds: Normal auscultation Murmur: No Friction rub: No Scott's crunch: No - Abdominal Inspection: Normal Distension: No distension Bowel sounds: Normal Tenderness: Nontender Organomegaly: No organomegaly - Genitourinary Tenderness: Other - Deferred - Back Back: Normal - Extremities General upper extremity: Normal inspection General lower extremity: Normal ROM - Neurological Neuro grossly intact: Yes Cognition: Normal Orientation: AAOx4 [place] Coma Scale Eye Opening: Spontaneous [place] Coma Scale Verbal: Oriented [place] Coma Scale Motor: Obeys Commands [place] Coma Scale Total: 15 Speech: Normal Cranial nerves: Normal Cerebellar coordination: Normal Motor strength normal: LUE, RUE, LLE, RLE - Psychological Associated symptoms: Anxious - Skin Skin Temperature: Warm Skin Moisture: Dry Skin irregularity: Lesion - Right leg third intention skin inspection of skin with good healing at this time. Course - Vital Signs Vital signs: Temp Pulse Resp BP Pulse Ox 97.9 F 15 120/77 100 02/20/20 14:05 02/20/20 14:01 02/20/20 14:00 02/20/20 14:01 - Laboratory Result Diagrams: 02/20/20 14:25 02/20/20 14:25 Laboratory results interpreted by me: 02/20/20 02/20/20 14:25 14:25 RBC 3.66 L Hgb 12.1 L Hct 33.6 L Sodium 131.2 L Chloride 97 L Carbon Dioxide 21 L BUN 3 L - Diagnostic Test Radiology reviewed: Reports reviewed - EKG Interpretation by Me EKG shows normal: Sinus rhythm Rate: Normal Critical Care Note - Critical Care Note Total time excluding time spent on procedures (mins): 60 Discharge - Discharge Clinical Impression: Chest pain at rest, Pleuritic chest pain, Hx of Graves' disease, Acute hyponat remia, Autoimmune disease Condition: Good Disposition: HOME, SELF-CARE Additional Instructions: Follow-up with insurance checker return to ER as needed be aware of autoimmune disease because of your underlying Graves' disease and should tell medical personnel about any potential for PMR polymyalgia rheumatica or other autoimmune problems. Take medicines as directed encourage fluids and also take aspirin a day 81 mg baby aspirin. Also try to stop smoking because of your family history Forms: Return to Work Referrals: SUNNY WYNN MD [Primary Care Provider] - Follow up as needed
[2020-02-20 15:17] LABS: ALKALINE PHOSPHATASE 89 U/L (38-126); ANION GAP 13 (5-19); ASPARTATE AMINO TRANSFERASE 29 U/L (17-59); BILIRUBIN,DIRECT 0.2 mg/dL (0.0-0.4); BILIRUBIN,TOTAL 0.3 mg/dL (0.2-1.3); BLOOD UREA NITROGEN 3 mg/dL (7-20); CALCIUM 8.5 mg/dL (8.4-10.2); CARBON DIOXIDE 21 mmol/L (22-30); CHLORIDE 97 mmol/L (98-107); CREATINE KINASE 108 U/L (55-170); GLUCOSE 80 mg/dL (75-110); TOTAL PROTEIN 6.7 g/dL (6.3-8.2)
[2020-02-20 15:30] LABS: CREATINE KINASE MB 0.54 ng/mL (<4.55)
[2020-02-20 15:36] LABS: TROPONIN I < 0.012 ng/mL
[2020-02-20 16:01] VITALS: BP 120/71
--- NOTE | 2020-02-20 21:48 | EKG REPORT ---
SEVERITY:- ABNORMAL ECG - SINUS RHYTHM FIRST DEGREE AV BLOCK : Confirmed by: Kitty Hsieh MD 20-Feb-2020 21:47:32
== END 2020-02-20 16:01 | disposition home or self-care (01) ==
LOC: ER 13:28
DX: R07.9 Chest pain, unspecified (principal); R07.81 Pleurodynia; E87.1 Hypo-osmolality and hyponatremia; D89.89 Other specified disorders involving the immune mechanism, not elsewhere classified; R42 Dizziness and giddiness; F17.210 Nicotine dependence, cigarettes, uncomplicated; E03.9 Hypothyroidism, unspecified
CPT/HCPCS: 36415; 71045; 80053; 82550; 82553; 84443; 84484; 85025; 93005; 93010; 99291